=== PATIENT | male | born 1975 | race Two or more races ===

== ENCOUNTER 2017-03-07 19:04 | Inpatient (IN) | payer OTHER ==
[~2017-03-07] VITALS: Ht 182.9 cm; Wt 120.5 kg
[2017-03-07 23:00] VITALS: BP 186/117; RESP 20; Ht 182.9 cm; Wt 120.5 kg
[2017-03-07 23:30] VITALS: BP 144/78; PULSE 78; RESP 16
[2017-03-08] MEDS ORDERED: hydrALAzine 20 MG INJ IV PRN
[2017-03-08] MEDS ORDERED: ONDANSETRON 4 MG INJ IV PRN
[2017-03-08] MEDS: DEXTROSE 5%-0.9% NACL 1,000 ML IV SCH ×3 (00:41→23:41)
[2017-03-08 06:08] LABS: ADD SCAN DIFF NO
[2017-03-08] MEDS: PANTOPRAZOLE 40 MG INJ IV SCH (06:11)
[2017-03-08 06:13] LABS: ABNORMAL IP MESSAGE 1; BASOPHIL # 0.1 10^3/ul (0.0-0.1); BASOPHILS % 0.5 % (0.0-2.0); EOSINOPHILS # 0.1 10^3/ul (0.0-0.5); EOSINOPHILS % 0.7 % (0.0-7.0); HEMATOCRIT 47.6 % (42.0-52.0); HEMOGLOBIN 15.5 g/dl (14.0-18.0); LYMPHOCYTES # 2.6 10^3/ul (0.8-2.9); MEAN CORPUSCULAR HEMOGLOBIN 30.7 pg (29.0-33.0); MEAN CORPUSCULAR HGB CONC 32.6 g/dl (32.0-37.0); MEAN CORPUSCULAR VOLUME 94.3 fl (82.0-101.0); MEAN PLATELET VOLUME 10.2 fl (7.4-10.4); MONOCYTE # 1.5 10^3/ul (0.3-0.9); NEUTROPHIL # 10.8 10^3/ul (1.6-7.5); NEUTROPHILS % 70.9 % (39.0-77.0); PLATELET COUNT 300 10^3/UL (140-415); RED BLOOD COUNT 5.05 10^6/ul (4.70-6.10); RED CELL DISTRIBUTION WIDTH 12.7 % (11.5-14.5); WHITE BLOOD COUNT 15.2 10^3/ul (4.8-10.8)
[2017-03-08] MEDS: ACETAMINOPHEN 325 MG TAB PO PRN (06:14)
[2017-03-08 07:01] LABS: ALBUMIN 4.2 g/dl (3.3-4.9); ALBUMIN/GLOBULIN RATIO 1.23; BILIRUBIN,INDIRECT 1.2 mg/dl (0-1.1); BILIRUBIN,TOTAL 1.2 mg/dl (0.2-1.3); CALCIUM 9.1 mg/dl (8.4-10.2); CREATININE 0.74 mg/dl (0.61-1.24); POTASSIUM 3.9 mmol/L (3.5-5.1); TOTAL PROTEIN 7.6 g/dl (6.1-8.1)
[2017-03-08 08:01] VITALS: BP 140/99; RESP 18
[2017-03-08] MEDS: MULTIVITAMINS 10 ML, THIAMINE 100 MG, FOLIC ACID 1 MG in SOD CHLORIDE 0.9% 1,000 ML IVPB SCH (09:04)
[2017-03-08 14:38] LABS: ADD SCAN DIFF NO
[2017-03-08 14:43] LABS: BASOPHIL # 0.1 10^3/ul (0.0-0.1); BASOPHILS % 0.3 % (0.0-2.0); EOSINOPHILS # 0.1 10^3/ul (0.0-0.5); EOSINOPHILS % 0.7 % (0.0-7.0); HEMATOCRIT 48.7 % (42.0-52.0); HEMOGLOBIN 16.3 g/dl (14.0-18.0); LYMPHOCYTES # 2.9 10^3/ul (0.8-2.9); LYMPHOCYTES % 19.3 % (15.0-51.0); MEAN CORPUSCULAR HEMOGLOBIN 31.8 pg (29.0-33.0); MEAN CORPUSCULAR HGB CONC 33.5 g/dl (32.0-37.0); MEAN CORPUSCULAR VOLUME 95.1 fl (82.0-101.0); MEAN PLATELET VOLUME 9.7 fl (7.4-10.4); MONOCYTE # 1.5 10^3/ul (0.3-0.9); MONOCYTES % 9.8 % (0.0-11.0); NEUTROPHIL # 10.5 10^3/ul (1.6-7.5); NEUTROPHILS % 69.1 % (39.0-77.0); PLATELET COUNT 303 10^3/UL (140-415); RED BLOOD COUNT 5.12 10^6/ul (4.70-6.10); RED CELL DISTRIBUTION WIDTH 12.6 % (11.5-14.5); WHITE BLOOD COUNT 15.2 10^3/ul (4.8-10.8)
[2017-03-08 14:56] LABS: CALCIUM 9.6 mg/dl (8.4-10.2); CREATININE 0.77 mg/dl (0.61-1.24); POTASSIUM 4.6 mmol/L (3.5-5.1)
[2017-03-08] MEDS: LORAZEPAM 2 MG INJ IV PRN (16:54)
[2017-03-08] MEDS ORDERED: ALBUTEROL/IPRATROPIUM (NEB) 3 ML AMP HHN PRN (18:30)
--- NOTE | 2017-03-08 18:36 | HP ---
DATE OF ADMISSION: 03/07/2017 HISTORY OF PRESENT ILLNESS: The patient with no significant past medical history, transferred from [facility] with incomplete record. The patient presented to [facility] with compl aints of chest pain, noted to have shortness of breath. Patient denies any hemoptysis, weight loss. WBC 17.7, hematocrit 48.2. Patient's sodium 130, potassium 3.7, creatinine 1.07, glucose 120. The patient has history of alcohol use intermittently in the past. Patient's complete records from [facility] are not available. Patient had CT pulmonary angiogram done which shows fatty images in the liver and visualized stone noted in the gallbladder. A left upper lobe mass suspicious for neoplasm noted. The patient is being admitted. PAST MEDICAL HISTORY: Negative for diabetes, hypertension. ALLERGY HISTORY: NEGATIVE. FAMILY HISTORY: Noncontributory. SOCIAL HISTORY: Positive for social drinking. MEDICATIONS AT HOME: Listed as none. REVIEW OF SYSTEMS: HEENT: Unremarkable. RESPIRATORY: No shortness of breath at this point. ABDOMEN: Unremarkable. EXTREMITIES: Unremarkable. GENITOURINARY: Unremarkable. MUSCULOSKELETAL: Unremarkable. PHYSICAL EXAMINATION: GENERAL: The patient is awake, alert, anxious. VITAL SIGNS: Stable. HEAD: Atraumatic, normocephalic. Pupils equal, reactive to light. NECK: Supple. No JVD. LUNGS: Clear. CARDIOVASCULAR: S1, S2 are normal. ABDOMEN: Soft, nontender. Bowel sounds positive. No palpable mass or hepatosplenomegaly. No guar ding, rebound tenderness. EXTREMITIES: There is no cyanosis, clubbing, or edema. CENTRAL NERVOUS SYSTEM: The patient is awake and alert with no focal deficit. LABORATORY DATA: WBC 17.7, BUN 48.2, platelet count of 295. The patient's glucose 120, AST 44, ALT 87. Alkaline phosphatase 58, creatinine 1.07. IMPRESSION: 1. Patient has lung mass. 2. Possible pneumonia. 3. Rule out malignancy, abnormal liver function tests. PLAN: Give this patient oxygen, bronchodilator, antibiotic, pulmonary consultation, repeat CT scan and deep venous thrombosis prophylaxis. Orders were done. Dictated By: LINDA SCHULTZ MD BS/NTS Conf#: [id number] DID#: [id number]
[2017-03-08 19:31] VITALS: BP 194/101; RESP 20
--- NOTE | 2017-03-08 22:33 | RADRPT ---
PROCEDURE: CT Chest Without Contrast CLINICAL INDICATION: Mass, pneumonia TECHNIQUE: Volumetric acquisition of the thorax was performed without the intravenous administrati on of contrast. Radiation Dose: CTDI = 16.72 mGy; DLP = 676.53 mGy-cm. COMPARISON: Comparison to the portable chest done earlier on the same date. The portable chest film demonstrated a triangular nodular density projecting to the lateral left upp er lung zone with the apex directed towards the lateral pleura. FINDINGS: Lung leung: A 3.2 x 2.4 x 1.9 cm slightly spiculated mass is seen within the anterior segment of th e left upper lobe adjacent to the anterolateral pleura. The mass envelops a sub segmental bronchus. There is slight surrounding parenchymal reaction. No other focal lesion is identified within the lung parenchyma. The pleural spaces: There are small bilateral water density gravitating pleural fluid accumulations. No pneumothorax is evident. Lymph nodes: A 1.1 cm in short diameter AP window node is identified. No other adenopathy is eviden t. Cardiovascular structures: The heart is normal in size. The aorta appears normal in caliber. Thyroid: Unremarkable. Superior abdominal structures: The partially visualized liver is enlarged and diffusely fatty infilt rated with no focal lesion evident. No adrenal mass is evident. Osseous structures: Mild degenerative endplate changes are seen within the thoracic spine with no os seous destruction evident. IMPRESSION: 1. 3.2 x 2.4 x 1.9 cm slightly spiculated pleural-based mass is seen within the anterior segment of the left upper lobe adjacent to the anterior lateral pleura with slight surrounding parenchymal olivia ction. This could be inflammatory or neoplastic. 2. 1.1 cm in short diameter AP window node. 3. Small bilateral water density pleural fluid accumulations. No pneumothorax is evident. 4. Hepatomegaly with diffuse fatty infiltration. No focal lesion is seen within the partially visu alized liver. Findings of a 3.2 cm pleural-based left upper lobe mass were telephoned by Alessandro Menard MD to Emily tiwari, the patients RN on 03/08/[address] Mondragon was not in the hospital, and the mass was known because of prior imaging at a different facility. Jovan Menard Physician Date Time Electronically viewed and signed by Jovan Menard Physician on 03/08/2017 22:33 RH/
--- NOTE | 2017-03-08 22:33 | RADRPT ---
PROCEDURE: XR Chest AP portable CLINICAL INDICATION: Possible pneumonia TECHNIQUE: An AP portable radiograph of the chest was submitted. COMPARISON: None. FINDINGS: Support Hardware: None Cardiovascular: The cardiovascular silhouette appears unremarkable. Lung Leung: A triangular shaped nodular density projects to the lateral left upper lung zone with t he apex directed towards the lateral pleura. The lung leung are otherwise clear. Pleural Spaces: No pneumothorax or pleural effusion is identified. Osseous Structures: The osseous structures appear intact. Soft Tissues: The soft tissues appear generous. IMPRESSION: 1. 3.9 cm in maximal diameter nodular density projects to the lateral left upper lung zone. A mass cannot be excluded. Correlation with CT is indicated. 2. Otherwise, unremarkable portable chest. Physician Oxana Date Time Electronically viewed and signed by Jovan Menard Physician on 03/08/2017 22:33 /
[2017-03-08] MEDS: PIPER-TAZO 3.375 GM IV (PMX) 100 ML IVPB SCH (23:40)
[2017-03-09] MEDS: PIPER-TAZO 3.375 GM IV (PMX) 100 ML IVPB SCH ×4 (05:16→23:39)
[2017-03-09] MEDS: PANTOPRAZOLE 40 MG INJ IV SCH (05:16)
[2017-03-09 05:48] LABS: ADD SCAN DIFF NO
[2017-03-09 05:52] LABS: BASOPHIL # 0.1 10^3/ul (0.0-0.1); BASOPHILS % 0.5 % (0.0-2.0); EOSINOPHILS # 0.2 10^3/ul (0.0-0.5); EOSINOPHILS % 1.5 % (0.0-7.0); HEMATOCRIT 48.9 % (42.0-52.0); HEMOGLOBIN 15.9 g/dl (14.0-18.0); LYMPHOCYTES # 2.5 10^3/ul (0.8-2.9); LYMPHOCYTES % 17.8 % (15.0-51.0); MEAN CORPUSCULAR HEMOGLOBIN 31.2 pg (29.0-33.0); MEAN CORPUSCULAR HGB CONC 32.5 g/dl (32.0-37.0); MEAN CORPUSCULAR VOLUME 96.1 fl (82.0-101.0); MEAN PLATELET VOLUME 10.4 fl (7.4-10.4); MONOCYTE # 1.4 10^3/ul (0.3-0.9); MONOCYTES % 10.2 % (0.0-11.0); NEUTROPHIL # 9.5 10^3/ul (1.6-7.5); NEUTROPHILS % 69.2 % (39.0-77.0); PLATELET COUNT 273 10^3/UL (140-415); RED BLOOD COUNT 5.09 10^6/ul (4.70-6.10); RED CELL DISTRIBUTION WIDTH 12.7 % (11.5-14.5); WHITE BLOOD COUNT 13.8 10^3/ul (4.8-10.8)
[2017-03-09 05:56] VITALS: BP 129/85; RESP 18
[2017-03-09 06:22] LABS: ALBUMIN 4.2 g/dl (3.3-4.9); POTASSIUM 4.8 mmol/L (3.5-5.1)
[2017-03-09 06:24] LABS: CREATININE 0.96 mg/dl (0.61-1.24)
[2017-03-09 06:25] LABS: ALBUMIN/GLOBULIN RATIO 1.13; BILIRUBIN,INDIRECT 1.2 mg/dl (0-1.1); BILIRUBIN,TOTAL 1.2 mg/dl (0.2-1.3); CALCIUM 9.4 mg/dl (8.4-10.2); TOTAL PROTEIN 7.9 g/dl (6.1-8.1)
[2017-03-09] MEDS: ACETAMINOPHEN 325 MG TAB PO PRN (07:52)
[2017-03-09] MEDS: MULTIVITAMINS 10 ML, THIAMINE 100 MG, FOLIC ACID 1 MG in SOD CHLORIDE 0.9% 1,000 ML IVPB SCH (07:54)
[2017-03-09 07:59] VITALS: BP 168/99; RESP 22
[2017-03-09] MEDS: DEXTROSE 5%-0.9% NACL 1,000 ML IV SCH (16:00)
--- NOTE | 2017-03-09 18:19 | PN ---
Date/Time of Note Date/Time of Note DATE: 03/09/17 TIME: 18:18 Assessment/Plan VTE Prophylaxis VTE Prophylaxis Intervention: other Lines/Catheters IV [facility]from [facility] Peripheral IV Urinary Cath still in place: No Assessment/Plan Chief Complaint/Hosp Course IMPRESSION: 1. Patient has lung mass. 2. Possible pneumonia. 3. Rule out malignancy, abnormal liver function tests. plan antibiotic pulmonary pending Problems: Subjective 24 Hr Interval Summary Respiratory: shortness of breath (neg) Exam/Review of Systems Vital Signs Vitals Vital Signs Date Time Temp Pulse Resp B/P Pulse Ox O2 Delivery O2 Flow Rate FiO2 03/09/17 07:59 98.4 85 22 168/99 95 03/07/17 23:30 Room Air Intake and Output 03/08/17 03/08/17 03/09/17 15:00 23:00 07:00 Intake Total 300 ml 1591.2 ml 1313 ml Output Total 6 ml 620 ml Balance 300 ml 1585.2 ml 693 ml Exam Respiratory: clear to auscultation Cardiovascular: regular rate and rhythm Gastrointestinal: soft Results Result Diagram: 03/09/17 0504 03/09/17 0509 Results 24 hrs Laboratory Tests Test 03/09/17 05:04 03/09/17 05:09 White Blood Count 13.8 H Red Blood Count 5.09 Hemoglobin 15.9 Hematocrit 48.9 Mean Corpuscular Volume 96.1 Mean Corpuscular Hemoglobin 31.2 Mean Corpuscular Hemoglobin Concent 32.5 Red Cell Distribution Width 12.7 Platelet Count 273 Mean Platelet Volume 10.4 Neutrophils % 69.2 Lymphocytes % 17.8 Monocytes % 10.2 Eosinophils % 1.5 Basophils % 0.5 Nucleated Red Blood Cells % 0.0 Neutrophils # 9.5 H Lymphocytes # 2.5 Monocytes # 1.4 H Eosinophils # 0.2 Basophils # 0.1 Nucleated Red Blood Cells # 0.0 Sodium Level 142 Potassium Level 4.8 Chloride Level 101 Carbon Dioxide Level 27 Anion Gap 19 H Blood Urea Nitrogen 10 Creatinine 0.96 Glucose Level 130 Calcium Level 9.4 Total Bilirubin 1.2 Direct Bilirubin 0.00 Indirect Bilirubin 1.2 H Aspartate Amino Transf (AST/SGOT) 45 Alanine Aminotransferase (ALT/SGPT) 75 H Alkaline Phosphatase 52 Total Protein 7.9 Albumin 4.2 Globulin 3.70 H Albumin/Globulin Ratio 1.13 Medications Medications Current Medications Multivitamins 10 ml/Thiamine HCl 100 mg/Folic Acid 1 mg/Sodium Chloride 1,011.2 ml @ 125 mls/ hr DAILY@09 IVPB Last administered on 03/09/17 07:54; Admin Dose 125 MLS/HR; Start 03/08/17 at 09:00 Dextrose/Sodium Chloride (D5-NS) 1,000 ml @ 75 mls/hr [id number] IV Last administered on 03/08/17 23:41; Admin Dose 75 MLS/HR; Start 03/08/17 at 00:00 Pantoprazole (Protonix Iv) 40 mg DAILY@06 IV Last administered on 03/09/17 05: 16; Admin Dose 40 MG; Start 03/08/17 at 06:00 Acetaminophen (Tylenol Tab) 650 mg Q6H PRN PO PAIN AND OR ELEVATED TEMP Last administered on 03/09/17 07:52; Admin Dose 650 MG; Start 03/08/17 at 00:00 Ondansetron HCl (Zofran Inj) 4 mg Q6H PRN IV NAUSEA AND/OR VOMITING; Start 03/08 at 00:00 Hydralazine HCl (Apresoline) 10 mg Q6H PRN IV ELEVATED BLOOD PRESSURE Last administered on 03/08/17 00:37; Admin Dose 10 MG; Start 03/08/17 at 00:00 Lorazepam 1 mg 1 mg Q6H PRN IV ANXIETY Last administered on 03/08/17 16:54; Admin Dose 1 MG; Start 03/08/17 at 17:00 Piperacillin Sod/ Tazobactam Sod (Zosyn 3.375gm/ 100 ml (Pmx)) 100 ml @ 200 mls /hr Q6 IVPB Last administered on 03/09/17 18:05; Admin Dose 200 MLS/HR; Start 03/09/17 at 00:00 LINDA SCHULTZ MD March 09, 2017 18:19
[2017-03-09 19:55] VITALS: BP 148/86; RESP 20
[2017-03-09] MEDS: HYDROCODONE/APAP (5/325) TAB PO PRN (22:28)
[2017-03-10] MEDS: LORAZEPAM 2 MG INJ IV PRN ×2 (00:28→22:41)
[2017-03-10] MEDS: DEXTROSE 5%-0.9% NACL 1,000 ML IV SCH ×3 (04:06→18:40)
[2017-03-10 05:32] LABS: ADD SCAN DIFF NO
[2017-03-10 05:35] LABS: ABNORMAL IP MESSAGE 1; BASOPHIL # 0.1 10^3/ul (0.0-0.1); BASOPHILS % 0.4 % (0.0-2.0); EOSINOPHILS # 0.2 10^3/ul (0.0-0.5); EOSINOPHILS % 1.5 % (0.0-7.0); HEMATOCRIT 50.5 % (42.0-52.0); HEMOGLOBIN 16.5 g/dl (14.0-18.0); LYMPHOCYTES # 2.6 10^3/ul (0.8-2.9); LYMPHOCYTES % 16.8 % (15.0-51.0); MEAN CORPUSCULAR HEMOGLOBIN 31.2 pg (29.0-33.0); MEAN CORPUSCULAR HGB CONC 32.7 g/dl (32.0-37.0); MEAN CORPUSCULAR VOLUME 95.5 fl (82.0-101.0); MEAN PLATELET VOLUME 9.8 fl (7.4-10.4); MONOCYTE # 1.7 10^3/ul (0.3-0.9); MONOCYTES % 10.9 % (0.0-11.0); NEUTROPHIL # 10.8 10^3/ul (1.6-7.5); NEUTROPHILS % 69.4 % (39.0-77.0); PLATELET COUNT 300 10^3/UL (140-415); RED BLOOD COUNT 5.29 10^6/ul (4.70-6.10); RED CELL DISTRIBUTION WIDTH 12.5 % (11.5-14.5); WHITE BLOOD COUNT 15.6 10^3/ul (4.8-10.8)
[2017-03-10] MEDS: PANTOPRAZOLE 40 MG INJ IV SCH (05:47)
[2017-03-10] MEDS: PIPER-TAZO 3.375 GM IV (PMX) 100 ML IVPB SCH ×3 (05:47→19:24)
[2017-03-10 07:31] VITALS: BP 146/96; RESP 20
[2017-03-10] MEDS: HYDROCODONE/APAP (5/325) TAB PO PRN ×2 (09:39→19:35)
[2017-03-10] MEDS: MULTIVITAMINS 10 ML, THIAMINE 100 MG, FOLIC ACID 1 MG in SOD CHLORIDE 0.9% 1,000 ML IVPB SCH (09:41)
--- NOTE | 2017-03-10 13:08 | CONS ---
DATE OF ADMISSION: 03/07/2017 DATE OF CONSULTATION: PULMONARY CONSULTATION REASON FOR CONSULTATION: Abnormal chest CT. HISTORY OF PRESENT ILLNESS: This is a 41-year-old gentleman with history of tobacco use with sympto ms of community-acquired pneumonia, who presented to [facility]. There, was found to have a left-sided infiltrate or mass. CT of the chest performed here confirms left chest wall lesion, po ssible infiltrate versus malignancy. The patient has positive tobacco and alcohol history. Current ly on banana bag. PAST MEDICAL HISTORY: As above. MEDICATIONS: Per chart. ALLERGIES: NONE. SOCIAL HISTORY: Positive tobacco and alcohol. PHYSICAL EXAMINATION: GENERAL: Moderately obese gentleman, comfortable at rest, no acute distress. VITAL SIGNS: Currently afebrile, pulse is 100, blood pressure 140/60, O2 saturation 96% on 2 L nasa l cannula. NECK: Supple. No JVD or lymphadenopathy. CARDIAC: S1, S2, no added sounds or murmurs. CHEST: Diminished air entry bilaterally. ABDOMEN: Soft, nontender. No guarding or rebound. EXTREMITIES: No cyanosis, clubbing, edema. NEUROLOGIC: No focal deficits. LABORATORY DATA: White count 15, hemoglobin 16.5, platelets of 300. BUN 10, creatinine 0.96. IMPRESSION AND PLAN: Left-sided chest wall mass concerning for possible malignancy versus infection . The patient will need: 1. CT-guided biopsy. 2. Stat coags preprocedure. 3. Continue antibiotics, will deescalate current antibiotics. 4. DVT and GI prophylaxis. Dictated By: MERLYN ADAMS/PINKY Conf#: [id number] DID#: [id number]
[2017-03-10 15:13] LABS: INR 1.15; PROTIME 14.7 Sec (12.2-14.2); PT RATIO 1.1
[2017-03-10 15:14] LABS: THROMBIN TIME 15.9 SEC (13.8-19.1)
--- NOTE | 2017-03-10 15:48 | PN ---
Date/Time of Note Date/Time of Note DATE: 03/10/17 TIME: 15:47 Assessment/Plan VTE Prophylaxis VTE Prophylaxis Intervention: other Lines/Catheters IV C[facility]ter Type (from [facility]): Peripheral IV Urinary Cath still in place: No Assessment/Plan Chief Complaint/Hosp Course IMPRESSION: 1. Patient has lung mass. 2. Possible pneumonia. 3. Rule out malignancy, abnormal liver function tests. plan antibiotic LUNG BIOPSY Problems: Subjective 24 Hr Interval Summary Eyes: no complaints ENT: no complaints Respiratory: no complaints Exam/Review of Systems Vital Signs Vitals Vital Signs Date Time Temp Pulse Resp B/P Pulse Ox O2 Delivery O2 Flow Rate FiO2 03/10/17 07:31 99.7 112 20 146/96 96 03/07/17 23:30 Room Air Intake and Output 03/09/17 03/09/17 03/10/17 15:00 23:00 07:00 Intake Total 225 ml 2271.2 ml 1135 ml Balance 225 ml 2271.2 ml 1135 ml Exam Neck: supple Respiratory: clear to auscultation Cardiovascular: regular rate and rhythm Gastrointestinal: soft Musculoskeletal: nl extremities to inspection Extremities: normal pulses Results Result Diagram: 03/10/17 0500 03/09/17 0509 Results 24 hrs Laboratory Tests Test 03/10/17 05:00 03/10/17 14:38 White Blood Count 15.6 H Red Blood Count 5.29 Hemoglobin 16.5 Hematocrit 50.5 Mean Corpuscular Volume 95.5 Mean Corpuscular Hemoglobin 31.2 Mean Corpuscular Hemoglobin Concent 32.7 Red Cell Distribution Width 12.5 Platelet Count 300 Pending Mean Platelet Volume 9.8 Neutrophils % 69.4 Lymphocytes % 16.8 Monocytes % 10.9 Eosinophils % 1.5 Basophils % 0.4 Nucleated Red Blood Cells % 0.0 Neutrophils # 10.8 H Lymphocytes # 2.6 Monocytes # 1.7 H Eosinophils # 0.2 Basophils # 0.1 Nucleated Red Blood Cells # 0.0 Prothrombin Time 14.7 H Prothrombin Time Ratio 1.1 INR International Normalized Ratio 1.15 Activated Partial Thromboplast Time 30.0 Thrombin Time 15.9 Medications Medications Current Medications Multivitamins 10 ml/Thiamine HCl 100 mg/Folic Acid 1 mg/Sodium Chloride 1,011.2 ml @ 125 mls/ hr DAILY@09 IVPB Last administered on 03/10/17t 09:41; Admin Dose 125 MLS/HR; Start 03/08/17 at 09:00 Dextrose/Sodium Chloride (D5-NS) 1,000 ml @ 75 mls/hr [id number] IV Last administered on 03/10/17 04:06; Admin Dose 75 MLS/HR; Start 03/08/17 at 00:00 Pantoprazole (Protonix Iv) 40 mg DAILY@06 IV Last administered on 03/10/17 05: 47; Admin Dose 40 MG; Start 03/08/17 at 06:00 Acetaminophen (Tylenol Tab) 650 mg Q6H PRN PO PAIN AND OR ELEVATED TEMP Last administered on 03/09/17 07:52; Admin Dose 650 MG; Start 03/08/17 at 00:00 Ondansetron HCl (Zofran Inj) 4 mg Q6H PRN IV NAUSEA AND/OR VOMITING; Start 03/08 at 00:00 Hydralazine HCl (Apresoline) 10 mg Q6H PRN IV ELEVATED BLOOD PRESSURE Last administered on 03/08/17 00:37; Admin Dose 10 MG; Start 03/08/17 at 00:00 Lorazepam 1 mg 1 mg Q6H PRN IV ANXIETY Last administered on 03/10/17 00:28; Admin Dose 1 MG; Start 03/08/17 at 17:00 Piperacillin Sod/ Tazobactam Sod (Zosyn 3.375gm/ 100 ml (Pmx)) 100 ml @ 200 mls /hr Q6 IVPB Last administered on 03/10/17 12:54; Admin Dose 200 MLS/HR; Start 03/09/17 at 00:00 Acetaminophen/ Hydrocodone Bitart ([place] (5/325)) 1 tab Q6H PRN PO PAIN Last administered on 03/10/17 09:39; Admin Dose 1 TAB; Start 03/09/17 at 22:30 LINDA SCHULTZ MD March 10, 2017 15:48
[2017-03-10] MEDS: ACETAMINOPHEN 325 MG TAB PO PRN (16:14)
[2017-03-10 20:26] VITALS: BP 143/85; RESP 18
[2017-03-11] VITALS (8 sets, daily range): BP systolic 135–171; BP diastolic 84–97; PULSE 94–102; RESP 18–23
[2017-03-11] MEDS: PIPER-TAZO 3.375 GM IV (PMX) 100 ML IVPB SCH ×5 (00:33→23:57)
[2017-03-11] MEDS: DEXTROSE 5%-0.9% NACL 1,000 ML IV SCH ×2 (02:09→08:00)
[2017-03-11] MEDS: PANTOPRAZOLE 40 MG INJ IV SCH (05:37)
[2017-03-11] MEDS: HYDROCODONE/APAP (5/325) TAB PO PRN ×2 (07:46→16:45)
[2017-03-11] MEDS: MULTIVITAMINS 10 ML, THIAMINE 100 MG, FOLIC ACID 1 MG in SOD CHLORIDE 0.9% 1,000 ML IVPB SCH (08:45)
[2017-03-11] MEDS: MIDAZOLAM 1 MG/ML 2 ML INJ ONE ×2 (10:15→10:43)
[2017-03-11] MEDS: FENTAnyl 50 MCG/ML VIAL ONE ×2 (10:15→10:45)
[2017-03-11] MEDS: LIDOCAINE 1% (MDV) 20 ML INJ ONE ×2 (10:15→10:50)
[2017-03-11] MEDS ORDERED: SOD CHLORIDE 0.9% 500 ML ONE (10:15)
--- NOTE | 2017-03-11 14:34 | CONS ---
Date/Time of Note Date/Time of Note DATE: 03/11/17 TIME: 14:31 Consult Date/Type/Reason Admit Date/Time March 07, 2017 at 22:47 Initial Consult Date Type of Consultation: Pulmonary Subjective Patient comfortable this morning no new events He was taken down to CT for biopsy of left-sided infiltrate, Dr. Vázquez contact me and stated that the infiltrate has doubled in size which would be consistent with pneumonia and not malignant process. Biopsy was therefore not performed. Objective Vital Signs Date Time Temp Pulse Resp B/P Pulse Ox O2 Delivery O2 Flow Rate FiO2 03/11/17 09:19 98.8 102 18 135/91 96 Room Air Intake and Output 03/10/17 03/10/17 03/11/17 15:00 23:00 07:00 Intake Total 365 ml 2285 ml 1411.2 ml Balance 365 ml 2285 ml 1411.2 ml Exam PHYSICAL EXAMINATION: GENERAL: Moderately obese gentleman, comfortable at rest, no acute distress. VITAL SIGNS: As above NECK: Supple. No JVD or lymphadenopathy. CARDIAC: S1, S2, no added sounds or murmurs. CHEST: Diminished air entry bilaterally. ABDOMEN: Soft, nontender. No guarding or rebound. EXTREMITIES: No cyanosis, clubbing, edema. NEUROLOGIC: No focal deficits. Results/Medications Result Diagram: 03/10/17 1438 03/09/17 0509 Results 24 hrs Laboratory Tests Test 03/10/17 14:38 Platelet Count 296 Prothrombin Time 14.7 H Prothrombin Time Ratio 1.1 INR International Normalized Ratio 1.15 Activated Partial Thromboplast Time 30.0 Thrombin Time 15.9 Medications Current Medications Multivitamins 10 ml/Thiamine HCl 100 mg/Folic Acid 1 mg/Sodium Chloride 1,011.2 ml @ 125 mls/ hr DAILY@09 IVPB Last administered on 03/11/17 08:45; Admin Dose 125 MLS/HR; Start 03/08/17 at 09:00 Dextrose/Sodium Chloride (D5-NS) 1,000 ml @ 75 mls/hr [id number] IV Last administered on 03/11/17 02:09; Admin Dose 75 MLS/HR; Start 03/08/17 at 00:00 Pantoprazole (Protonix Iv) 40 mg DAILY@06 IV Last administered on 03/11/17 05: 37; Admin Dose 40 MG; Start 03/08/17 at 06:00 Acetaminophen (Tylenol Tab) 650 mg Q6H PRN PO PAIN AND OR ELEVATED TEMP Last administered on 03/10/17 16:14; Admin Dose 650 MG; Start 03/08/17 at 00:00 Ondansetron HCl (Zofran Inj) 4 mg Q6H PRN IV NAUSEA AND/OR VOMITING; Start 03/08 at 00:00 Hydralazine HCl (Apresoline) 10 mg Q6H PRN IV ELEVATED BLOOD PRESSURE Last administered on 03/08/17 00:37; Admin Dose 10 MG; Start 03/08/17 at 00:00 Lorazepam 1 mg 1 mg Q6H PRN IV ANXIETY Last administered on 03/10/17 22:41; Admin Dose 1 MG; Start 03/08/17 at 17:00 Piperacillin Sod/ Tazobactam Sod (Zosyn 3.375gm/ 100 ml (Pmx)) 100 ml @ 200 mls /hr Q6 IVPB Last administered on 03/11/17 13:06; Admin Dose 200 MLS/HR; Start 03/09/17 at 00:00 Acetaminophen/ Hydrocodone Bitart ([place] (5/325)) 1 tab Q6H PRN PO PAIN Last administered on 03/11/17 07:46; Admin Dose 1 TAB; Start 03/09/17 at 22:30 Assessment/Plan Chief Complaint/Hosp Course Assessment 1. Left-sided infiltrate initially concerning for malignancy but no increasing in size likely consistent with community acquired pneumonia. Plan Biopsy on hold Continue broad-spectrum antibiotics Repeat chest x-ray 1-2 days anticipate improvement. If no radiographic improvement with persistent leukocytosis patient will need either bronchoscopy or CT-guided biopsy to rule out differential diagnosis which does include cryptogenic organizing pneumonia Problems: MERLYN KRISHNA MD, [facility] March 11, 2017 14:33
--- NOTE | 2017-03-11 16:25 | RADRPT ---
PROCEDURE: CT Chest without contrast. CLINICAL INDICATION: Left lung mass. TECHNIQUE: Helical axial sections were obtained through the chest without intravenous contrast enh ancement. Coronal and sagittal reformatted images were obtained from the axial source images. Total exam DLP is unobtainable. CTDIvol is unobtainable. One or more of the following dose reduction t echniques were used: Automated exposure control, adjustment of the mA and/or kV according to patient size, use of iterative reconstruction technique. COMPARISON: CT scan of the chest dated 03/08/2017. FINDINGS: This is a limited study obtained for targeting of left upper lobe lesion for biopsy. Limited images obtained through the left upper lobe demonstrate patchy air space disease surrounding a mass-like lesion with the mass-like lesion measuring up to 6 cm in maximal dimension. On the ana or study and measured up to 3.2 cm in maximal dimension. There is no other new abnormality. IMPRESSION: 1. Limited CT scan of the chest. 2. The left upper lobe mass like lesion is now much larger than seen on the prior study 3 days ago indicating it is probably infectious in nature. Biopsy was not performed. Call report: A call report of the findings was made to Dr. Guzman on 03/11/2017 at 1145 hours. RPTAT: QQ .Jl Vázquez MD, MD Date Time Electronically viewed and signed by .Jl Vázquez MD, on 03/11/2017 16:25 .R/
[2017-03-11] MEDS: ACETAMINOPHEN 325 MG TAB PO PRN (19:59)
--- NOTE | 2017-03-11 20:22 | PN ---
Date/Time of Note Date/Time of Note DATE: 03/11/17 TIME: 20:20 Assessment/Plan VTE Prophylaxis VTE Prophylaxis Intervention: anti-embolic stocking Lines/Catheters [facility]from [facility] Peripheral IV Urinary Cath still in place: No Assessment/Plan Chief Complaint/Hosp Course 1. Patient has lung mass. 2. Possible pneumonia. 3. Rule out malignancy, abnormal liver function tests. Problems: Assessment/Plan 1. Cont A.b Subjective 24 Hr Interval Summary Constitutional: improved, no complaints Exam/Review of Systems Vital Signs Vitals Vital Signs Date Time Temp Pulse Resp B/P Pulse Ox O2 Delivery O2 Flow Rate FiO2 03/11/17 19:41 100.0 88 20 156/97 98 03/11/17 11:00 Room Air 03/11/17 10:55 2.0 Intake and Output 03/10/17 03/10/17 03/11/17 15:00 23:00 07:00 Intake Total 365 ml 2285 ml 1411.2 ml Balance 365 ml 2285 ml 1411.2 ml Exam Constitutional: alert, oriented Neck: supple Respiratory: clear to auscultation Cardiovascular: regular rate and rhythm Results Result Diagram: 03/10/17 1438 03/09/17 0509 Medications Medications Current Medications Pantoprazole (Protonix Iv) 40 mg DAILY@06 IV Last administered on 03/11/17 05: 37; Admin Dose 40 MG; Start 03/08/17 at 06:00 Acetaminophen (Tylenol Tab) 650 mg Q6H PRN PO PAIN AND OR ELEVATED TEMP Last administered on 03/11/17 19:59; Admin Dose 650 MG; Start 03/08/17 at 00:00 Ondansetron HCl (Zofran Inj) 4 mg Q6H PRN IV NAUSEA AND/OR VOMITING; Start 03/08 at 00:00 Hydralazine HCl (Apresoline) 10 mg Q6H PRN IV ELEVATED BLOOD PRESSURE Last administered on 03/08/17 00:37; Admin Dose 10 MG; Start 03/08/17 at 00:00 Lorazepam 1 mg 1 mg Q6H PRN IV ANXIETY Last administered on 03/10/17 22:41; Admin Dose 1 MG; Start 03/08/17 at 17:00 Piperacillin Sod/ Tazobactam Sod (Zosyn 3.375gm/ 100 ml (Pmx)) 100 ml @ 200 mls /hr Q6 IVPB Last administered on 03/11/17 19:14; Admin Dose 200 MLS/HR; Start 03/09/17 at 00:00 Acetaminophen/ Hydrocodone Bitart ([place] (5/325)) 1 tab Q6H PRN PO PAIN Last administered on 03/11/17 16:45; Admin Dose 1 TAB; Start 03/09/17 at 22:30 Multivitamins Therapeutic (Theragran) 1 tab DAILY PO ; Start 03/12/17 at 09:00 JAMILA LYNN March 11, 2017 20:21
[2017-03-11] MEDS: LORAZEPAM 2 MG INJ IV PRN (22:47)
[2017-03-12] VITALS: BP 136/81; PULSE 113; RESP 20
[2017-03-12] MEDS ORDERED: VANCOMYCIN IV PER PHARMACY XX SCH (00:30)
[2017-03-12] MEDS ORDERED: ACETAMINOPHEN 325 MG TAB PO ONE (00:49)
[2017-03-12] MEDS ORDERED: VANCOMYCIN 2 GM in SOD CHLORIDE 0.9% 500 ML IVPB ONE (02:00)
[2017-03-12 06:00] VITALS: PULSE 100
[2017-03-12] MEDS: PIPER-TAZO 3.375 GM IV (PMX) 100 ML IVPB SCH (06:22)
[2017-03-12] MEDS: PANTOPRAZOLE 40 MG INJ IV SCH (06:22)
[2017-03-12 06:42] LABS: ADD SCAN DIFF NO
[2017-03-12 06:51] LABS: ABNORMAL IP MESSAGE 1; BASOPHIL # 0.1 10^3/ul (0.0-0.1); BASOPHILS % 0.6 % (0.0-2.0); EOSINOPHILS # 0.4 10^3/ul (0.0-0.5); EOSINOPHILS % 2.4 % (0.0-7.0); HEMOGLOBIN 14.2 g/dl (14.0-18.0); LYMPHOCYTES # 2.2 10^3/ul (0.8-2.9); LYMPHOCYTES % 14.6 % (15.0-51.0); MEAN CORPUSCULAR HEMOGLOBIN 31.4 pg (29.0-33.0); MEAN CORPUSCULAR VOLUME 95.1 fl (82.0-101.0); MEAN PLATELET VOLUME 10.4 fl (7.4-10.4); MONOCYTE # 1.7 10^3/ul (0.3-0.9); MONOCYTES % 11.4 % (0.0-11.0); NEUTROPHIL # 10.6 10^3/ul (1.6-7.5); NEUTROPHILS % 70.3 % (39.0-77.0); PLATELET COUNT 259 10^3/UL (140-415); RED BLOOD COUNT 4.52 10^6/ul (4.70-6.10); RED CELL DISTRIBUTION WIDTH 12.3 % (11.5-14.5); WHITE BLOOD COUNT 15.1 10^3/ul (4.8-10.8)
[2017-03-12 07:50] VITALS: BP 147/91; RESP 18
[2017-03-12] MEDS: HYDROCODONE/APAP (5/325) TAB PO PRN ×2 (08:26→15:00)
[2017-03-12] MEDS: MULTIVITAMINS THERAPEUTIC TAB PO SCH (08:26)
[2017-03-12] MEDS: CEFTRIAXONE 1 GM/50 ML (PMX) 50 ML IVPB SCH (08:26)
[2017-03-12 09:11] LABS: CALCIUM 8.8 mg/dl (8.4-10.2); CREATININE 0.84 mg/dl (0.61-1.24); POTASSIUM 3.8 mmol/L (3.5-5.1)
[2017-03-12] MEDS: AZITHROMYCIN 500 MG in SOD CHLORIDE 0.9% 250 ML IVPB SCH (09:31)
--- NOTE | 2017-03-12 11:35 | RADRPT ---
PROCEDURE: XR Chest. CLINICAL INDICATION: CHF, pneumonia TECHNIQUE: Single frontal chest x-ray. COMPARISON: CT, 03/11/2017 FINDINGS: Focal opacity is again noted in the left upper lobe, grossly stable in size when compared to the ana or CT. No pneumothorax or significant pleural effusion is identified. Cardiomediastinal silhouette i s within normal limits. The osseous structures are unremarkable. IMPRESSION: 1. Focal left upper lobe opacity is again noted, grossly stable in size, concerning for pneumonia. RPTAT: QQ .Tres Feng MD, MD Date Time Electronically viewed and signed by .Tres Feng MD, on 03/12/2017 11:34 .R/
--- NOTE | 2017-03-12 13:35 | PN ---
Date/Time of Note Date/Time of Note DATE: 03/12/17 TIME: 13:32 Assessment/Plan VTE Prophylaxis VTE Prophylaxis Intervention: ambulation Lines/Catheters IV C[facility]ter Type (from [facility]): Saline Lock Urinary Cath still in place: No Assessment/Plan Chief Complaint/Hosp Course 1. Patient has lung mass. 2. Possible pneumonia. 3. Rule out malignancy, abnormal liver function tests 4. Hyponatremia. Problems: Assessment/Plan 1. Continue a/b 2. Add ID consult Dr Carbone Exam/Review of Systems Vital Signs Vitals Vital Signs Date Time Temp Pulse Resp B/P Pulse Ox O2 Delivery O2 Flow Rate FiO2 03/12/17 07:50 99.7 98 18 147/91 98 03/12/17 00:00 Room Air 03/11/17 10:55 2.0 Intake and Output 03/11/17 03/11/17 03/12/17 15:00 23:00 07:00 Intake Total 270 ml 1560 ml 940 ml Balance 270 ml 1560 ml 940 ml Results Result Diagram: 03/12/17 0550 03/12/17 0555 Results 24 hrs Laboratory Tests Test 03/12/17 05:50 03/12/17 05:55 White Blood Count 15.1 H Red Blood Count 4.52 L Hemoglobin 14.2 Hematocrit 43.0 Mean Corpuscular Volume 95.1 Mean Corpuscular Hemoglobin 31.4 Mean Corpuscular Hemoglobin Concent 33.0 Red Cell Distribution Width 12.3 Platelet Count 259 Mean Platelet Volume 10.4 Neutrophils % 70.3 Lymphocytes % 14.6 L Monocytes % 11.4 H Eosinophils % 2.4 Basophils % 0.6 Nucleated Red Blood Cells % 0.0 Neutrophils # 10.6 H Lymphocytes # 2.2 Monocytes # 1.7 H Eosinophils # 0.4 Basophils # 0.1 Nucleated Red Blood Cells # 0.0 Sodium Level 134 L Potassium Level 3.8 Chloride Level 104 Carbon Dioxide Level 21 Anion Gap 13 Blood Urea Nitrogen 9 Creatinine 0.84 Glucose Level 121 Calcium Level 8.8 Medications Medications Current Medications Pantoprazole (Protonix Iv) 40 mg DAILY@06 IV Last administered on 03/12/17 06: 22; Admin Dose 40 MG; Start 03/08/17 at 06:00 Acetaminophen (Tylenol Tab) 650 mg Q6H PRN PO PAIN AND OR ELEVATED TEMP Last administered on 03/11/17 19:59; Admin Dose 650 MG; Start 03/08/17 at 00:00 Ondansetron HCl (Zofran Inj) 4 mg Q6H PRN IV NAUSEA AND/OR VOMITING; Start 03/08 at 00:00 Hydralazine HCl (Apresoline) 10 mg Q6H PRN IV ELEVATED BLOOD PRESSURE Last administered on 03/08/17 00:37; Admin Dose 10 MG; Start 03/08/17 at 00:00 Lorazepam (Ativan) 1 mg Q6H PRN IV ANXIETY Last administered on 03/11/17 22:47 ; Admin Dose 1 MG; Start 03/08/17 at 17:00 Acetaminophen/ Hydrocodone Bitart ([place] (5/325)) 1 tab Q6H PRN PO PAIN Last administered on 03/12/17 08:26; Admin Dose 1 TAB; Start 03/09/17 at 22:30 Multivitamins Therapeutic 1 tab 1 tab DAILY PO Last administered on 03/12/17 08:26; Admin Dose 1 TAB; Start 03/12/17 at 09:00 Vancomycin HCl 1.5 gm/Sodium Chloride 250 ml @ 83.333 mls/ hr Q12H IVPB ; Start 03/12/17 at 14:00 Ceftriaxone Sodium 50 ml @ 100 mls/hr Q24H IVPB Last administered on 08:26; Admin Dose 100 MLS/HR; Start 03/12/17 at 08:00 Azithromycin/ Sodium Chloride (Zithromax/NS) 250 ml @ 250 mls/hr DAILY IVPB Last administered on 03/12/17 09:31; Admin Dose 250 MLS/HR; Start 03/12/17 at 09:00 Miscellaneous Information (*Rx Drug Level Order Reminder*) VANCOMYCIN TROUGH AT 1300 ONCE ONCE XX ; Start 03/13/17 at 13:00; Stop 03/13/17 at 13:01 JAMILA LYNN March 12, 2017 13:35
[2017-03-12] MEDS: VANCOMYCIN 1.5 GM in SOD CHLORIDE 0.9% 250 ML IVPB SCH (14:36)
--- NOTE | 2017-03-12 16:23 | CONS ---
Date/Time of Note Date/Time of Note DATE: 03/12/17 TIME: 16:20 Consult Date/Type/Reason Admit Date/Time March 07, 2017 at 22:47 Initial Consult Date Type of Consultation: Pulmonary Subjective Still febrile. Objective Vital Signs Date Time Temp Pulse Resp B/P Pulse Ox O2 Delivery O2 Flow Rate FiO2 03/12/17 07:50 99.7 98 18 147/91 98 03/12/17 00:00 Room Air 03/11/17 10:55 2.0 Intake and Output 03/11/17 03/11/17 03/12/17 15:00 23:00 07:00 Intake Total 270 ml 1560 ml 940 ml Balance 270 ml 1560 ml 940 ml Exam CARDIAC: S1, S2, no added sounds or murmurs. CHEST: Left sided posterior upper lung zone rales ABDOMEN: Soft, nontender. No guarding or rebound. EXTREMITIES: No cyanosis, clubbing, edema. Results/Medications Result Diagram: 03/12/17 0550 03/12/17 0555 Results 24 hrs Laboratory Tests Test 03/12/17 05:50 03/12/17 05:55 White Blood Count 15.1 H Red Blood Count 4.52 L Hemoglobin 14.2 Hematocrit 43.0 Mean Corpuscular Volume 95.1 Mean Corpuscular Hemoglobin 31.4 Mean Corpuscular Hemoglobin Concent 33.0 Red Cell Distribution Width 12.3 Platelet Count 259 Mean Platelet Volume 10.4 Neutrophils % 70.3 Lymphocytes % 14.6 L Monocytes % 11.4 H Eosinophils % 2.4 Basophils % 0.6 Nucleated Red Blood Cells % 0.0 Neutrophils # 10.6 H Lymphocytes # 2.2 Monocytes # 1.7 H Eosinophils # 0.4 Basophils # 0.1 Nucleated Red Blood Cells # 0.0 Sodium Level 134 L Potassium Level 3.8 Chloride Level 104 Carbon Dioxide Level 21 Anion Gap 13 Blood Urea Nitrogen 9 Creatinine 0.84 Glucose Level 121 Calcium Level 8.8 Medications Current Medications Pantoprazole (Protonix Iv) 40 mg DAILY@06 IV Last administered on 03/12/17 06: 22; Admin Dose 40 MG; Start 03/08/17 at 06:00 Acetaminophen (Tylenol Tab) 650 mg Q6H PRN PO PAIN AND OR ELEVATED TEMP Last administered on 03/11/17 19:59; Admin Dose 650 MG; Start 03/08/17 at 00:00 Ondansetron HCl (Zofran Inj) 4 mg Q6H PRN IV NAUSEA AND/OR VOMITING; Start 03/08 at 00:00 Hydralazine HCl (Apresoline) 10 mg Q6H PRN IV ELEVATED BLOOD PRESSURE Last administered on 03/08/17 00:37; Admin Dose 10 MG; Start 03/08/17 at 00:00 Lorazepam (Ativan) 1 mg Q6H PRN IV ANXIETY Last administered on 03/11/17 22:47 ; Admin Dose 1 MG; Start 03/08/17 at 17:00 Acetaminophen/ Hydrocodone Bitart ([place] (5/325)) 1 tab Q6H PRN PO PAIN Last administered on 03/12/17 15:00; Admin Dose 1 TAB; Start 03/09/17 at 22:30 Multivitamins Therapeutic 1 tab 1 tab DAILY PO Last administered on 03/12/17 08:26; Admin Dose 1 TAB; Start 03/12/17 at 09:00 Vancomycin HCl 1.5 gm/Sodium Chloride 250 ml @ 83.333 mls/ hr Q12H IVPB Last administered on 03/12/17 14:36; Admin Dose 83.333 MLS/HR; Start 03/12/17 at 14: 00 Ceftriaxone Sodium 50 ml @ 100 mls/hr Q24H IVPB Last administered on 08:26; Admin Dose 100 MLS/HR; Start 03/12/17 at 08:00 Azithromycin/ Sodium Chloride (Zithromax/NS) 250 ml @ 250 mls/hr DAILY IVPB Last administered on 03/12/17 09:31; Admin Dose 250 MLS/HR; Start 03/12/17 at 09:00 Miscellaneous Information (*Rx Drug Level Order Reminder*) VANCOMYCIN TROUGH AT 1300 ONCE ONCE XX ; Start 03/13/17 at 13:00; Stop 03/13/17 at 13:01 Assessment/Plan Additional Assessment/Plan IMP: 1. LEIGHANN progressive mass-like infiltrate: now c/w CAP. Would consider crypto, cocci, and less likely TB. Also DISTRIBUTION CENTER SUPERVISOR is a possibility RECS: 1. De-escalate abx 2. obtain serum CRAG, cocci serologies, HIV, and AFB sputa x3 3. If work-up negative, would consider CT-guided bx vs. TBBx for possible DISTRIBUTION CENTER SUPERVISOR DIANE TIMMONS MD March 12, 2017 16:23
--- NOTE | 2017-03-12 18:40 | CONS ---
DATE OF ADMISSION: 03/07/2017 DATE OF CONSULTATION: 03/12/2017 TYPE OF CONSULTATION: Infectious Disease. REASON FOR CONSULTATION: Antibiotic management. HISTORY OF PRESENT ILLNESS: Lucian Marie is a 41-year-old male with no significant past medi venkat history who presented to [facility] with chest pain and shortness of breath. The patie nt has a history of alcohol use intermittently. His white count was 17.7, hematocrit was 48.2. CT pulmonary angiogram done shows fatty study images of the liver, visualized stones in the gallbladder , left upper lobe mass suspicious for neoplasm was noted. His white count was 17.7 on admission. HOSPITAL COURSE: On the , his white count was 15.2, H and H 15.5 and 47.6, platelet count 300,00 0. BUN and creatinine was 9/0.84. Sputum showed normal respiratory jose. Chest x-ray: 3.9 cm in maximal diameter nodular density projects to the lateral left upper lung zone, mass cannot be exclud ed. Correlation with CT scan is indicated. A CT scan of the chest showed 3.2 x 2.4 x 1.9 cm sligh tly spiculated pleural based mass seen within the anterior segment of the left upper lobe. This cou ld be inflammatory or neoplastic, a 1.1 cm in short diameter AP window node and pleural fluid accumu lation. No pneumothorax is evident. Hepatomegaly with diffuse fatty infiltrates. Limited CT scan of the chest, left upper lobe mass-like lesion now much larger than seen on the prior study 3 days a go indicating it is probably infectious in nature, biopsy not performed. Chest x-ray focal left upp er lobe opacity concerning for pneumonia. The patient was seen by Dr. Guzman, pulmonary who recomm ended CT-guided biopsy, continue antibiotics. The patient is currently on vancomycin, azithromycin, ceftriaxone. He was on Zosyn, piperacillin, tazobactam. The patient was more comfortable on the 11 01, a biopsy was not performed because the infiltrate had doubled in size and therefore was more co nsistent with pneumonitis, left sided infiltrates initially concerning for malignancy, likely consis tent with community-acquired pneumonia. The patient with a lung mass. PAST MEDICAL HISTORY: Operations as outlined. FAMILY HISTORY: Noncontributory. SOCIAL HISTORY: Does not smoke or abuse drugs. He has some positive social drinking. ALLERGIES: NONE TO PENICILLIN, SULFA OR FOODS. MEDICATIONS: Per chart. REVIEW OF SYSTEMS: As per HPI. PHYSICAL EXAMINATION: GENERAL: The patient is a well-developed, well-nourished male who is alert, responsive, in no acute distress. VITAL SIGNS: Stable. He is afebrile. SKIN: Without generalized rash. HEENT: Within normal limits. NECK: Supple. LYMPH NODES: None palpable. CHEST: Decreased breath sounds at the bases. HEART: Without murmur or gallop. ABDOMEN: Soft, nontender, without organosplenomegaly or masses. EXTREMITIES: Without cyanosis, clubbing, or edema. RECTAL AND GENITAL: Deferred. NEUROLOGIC: No focal neurological abnormalities. IMPRESSION AND PLAN: We are dealing here with a patient, Lucian Marie, who probably has comm unity-acquired pneumonia. However, we cannot rule out a mass and a biopsy would have been helpful I think in this situation However, we will continue to observe his white count which was 15.2 on adm ission, is still elevated at 15.1. We may want to change his ceftriaxone to cefepime but we will wa it a day to see how he does on this regimen. I will dictate my findings to Dr. Mondragon and Dr. Yajaira crabtree. Dictated By: KIMBERLYN CHARLES MD, JD/PINKY Conf#: [id number] DID#: [id number]
[2017-03-12 19:53] VITALS: BP 136/82; RESP 20
[2017-03-12] MEDS: ACETAMINOPHEN 325 MG TAB PO PRN (20:12)
[2017-03-12] MEDS: LORAZEPAM 2 MG INJ IV PRN (22:40)
[2017-03-13] MEDS: VANCOMYCIN 1.5 GM in SOD CHLORIDE 0.9% 250 ML IVPB SCH ×2 (02:08→14:36)
[2017-03-13] MEDS: ACETAMINOPHEN 325 MG TAB PO PRN ×2 (04:25→17:31)
[2017-03-13 05:39] LABS: ADD SCAN DIFF NO
[2017-03-13] MEDS: PANTOPRAZOLE 40 MG INJ IV SCH (05:40)
[2017-03-13 05:42] LABS: ABNORMAL IP MESSAGE 1; BASOPHIL # 0.1 10^3/ul (0.0-0.1); BASOPHILS % 0.6 % (0.0-2.0); EOSINOPHILS # 0.4 10^3/ul (0.0-0.5); EOSINOPHILS % 2.7 % (0.0-7.0); HEMATOCRIT 43.7 % (42.0-52.0); HEMOGLOBIN 14.2 g/dl (14.0-18.0); LYMPHOCYTES # 2.3 10^3/ul (0.8-2.9); LYMPHOCYTES % 16.2 % (15.0-51.0); MEAN CORPUSCULAR HEMOGLOBIN 31.1 pg (29.0-33.0); MEAN CORPUSCULAR HGB CONC 32.5 g/dl (32.0-37.0); MEAN CORPUSCULAR VOLUME 95.8 fl (82.0-101.0); MEAN PLATELET VOLUME 10.4 fl (7.4-10.4); MONOCYTE # 1.6 10^3/ul (0.3-0.9); MONOCYTES % 11.4 % (0.0-11.0); NEUTROPHIL # 9.8 10^3/ul (1.6-7.5); NEUTROPHILS % 68.6 % (39.0-77.0); PLATELET COUNT 280 10^3/UL (140-415); RED BLOOD COUNT 4.56 10^6/ul (4.70-6.10); WHITE BLOOD COUNT 14.3 10^3/ul (4.8-10.8)
[2017-03-13 06:06] LABS: POTASSIUM 3.8 mmol/L (3.5-5.1)
[2017-03-13 06:09] LABS: CREATININE 0.8 mg/dl (0.61-1.24)
[2017-03-13 06:10] LABS: CALCIUM 8.9 mg/dl (8.4-10.2)
[2017-03-13 07:33] VITALS: BP 128/87; RESP 18
[2017-03-13] MEDS: MULTIVITAMINS THERAPEUTIC TAB PO SCH (08:20)
[2017-03-13] MEDS: CEFTRIAXONE 1 GM/50 ML (PMX) 50 ML IVPB SCH (08:20)
[2017-03-13] MEDS: AZITHROMYCIN 500 MG in SOD CHLORIDE 0.9% 250 ML IVPB SCH (09:17)
[2017-03-13] MEDS: HYDROCODONE/APAP (5/325) TAB PO PRN ×2 (09:34→20:07)
--- NOTE | 2017-03-13 14:46 | CONS ---
Date/Time of Note Date/Time of Note DATE: 03/13/17 TIME: 14:44 Consult Date/Type/Reason Admit Date/Time March 07, 2017 at 22:47 Type of Consultation: Pulmonary Subjective Still febrile overnight. Less cough Objective Vital Signs Date Time Temp Pulse Resp B/P Pulse Ox O2 Delivery O2 Flow Rate FiO2 03/13/17 07:33 98.6 94 18 128/87 97 03/12/17 00:00 Room Air 03/11/17 10:55 2.0 Intake and Output 03/12/17 03/12/17 03/13/17 15:00 23:00 07:00 Intake Total 1220 ml 1530 ml 1350 ml Balance 1220 ml 1530 ml 1350 ml Exam CARDIAC: S1, S2, no added sounds or murmurs. CHEST: Left sided posterior upper lung zone rales ABDOMEN: Soft, nontender. No guarding or rebound. EXTREMITIES: No cyanosis, clubbing, edema. Results/Medications Result Diagram: 03/13/17 0422 03/13/17 0422 Results 24 hrs Laboratory Tests Test 03/12/17 16:55 03/13/17 04:22 03/13/17 13:05 HIV (1&2) Antibody NEGATIVE White Blood Count 14.3 H Red Blood Count 4.56 L Hemoglobin 14.2 Hematocrit 43.7 Mean Corpuscular Volume 95.8 Mean Corpuscular Hemoglobin 31.1 Mean Corpuscular Hemoglobin Concent 32.5 Red Cell Distribution Width 12.0 Platelet Count 280 Mean Platelet Volume 10.4 Neutrophils % 68.6 Lymphocytes % 16.2 Monocytes % 11.4 H Eosinophils % 2.7 Basophils % 0.6 Nucleated Red Blood Cells % 0.0 Neutrophils # 9.8 H Lymphocytes # 2.3 Monocytes # 1.6 H Eosinophils # 0.4 Basophils # 0.1 Nucleated Red Blood Cells # 0.0 Sodium Level 137 Potassium Level 3.8 Chloride Level 101 Carbon Dioxide Level 24 Anion Gap 16 Blood Urea Nitrogen 10 Creatinine 0.80 Glucose Level 140 Calcium Level 8.9 Vancomycin Level Trough < 5.0 L Medications Current Medications Pantoprazole (Protonix Iv) 40 mg DAILY@06 IV Last administered on 03/13/17t 05: 40; Admin Dose 40 MG; Start 03/08/17 at 06:00 Acetaminophen (Tylenol Tab) 650 mg Q6H PRN PO PAIN AND OR ELEVATED TEMP Last administered on 03/13/17 04:25; Admin Dose 650 MG; Start 03/08/17 at 00:00 Ondansetron HCl (Zofran Inj) 4 mg Q6H PRN IV NAUSEA AND/OR VOMITING; Start 03/08 at 00:00 Hydralazine HCl (Apresoline) 10 mg Q6H PRN IV ELEVATED BLOOD PRESSURE Last administered on 03/08/17 00:37; Admin Dose 10 MG; Start 03/08/17 at 00:00 Lorazepam (Ativan) 1 mg Q6H PRN IV ANXIETY Last administered on 03/12/17 22:40 ; Admin Dose 1 MG; Start 03/08/17 at 17:00 Acetaminophen/ Hydrocodone Bitart ([place] (5/325)) 1 tab Q6H PRN PO PAIN Last administered on 03/13/17 09:34; Admin Dose 1 TAB; Start 03/09/17 at 22:30 Multivitamins Therapeutic 1 tab 1 tab DAILY PO Last administered on 03/13/17 08:20; Admin Dose 1 TAB; Start 03/12/17 at 09:00 Vancomycin HCl 1.5 gm/Sodium Chloride 250 ml @ 83.333 mls/ hr Q12H IVPB Last administered on 03/13/17 14:36; Admin Dose 83.333 MLS/HR; Start 03/12/17 at 14: 00; Stop 03/13/17 at 20:00 Ceftriaxone Sodium 50 ml @ 100 mls/hr Q24H IVPB Last administered on 08:20; Admin Dose 100 MLS/HR; Start 03/12/17 at 08:00 Azithromycin 500 mg/Sodium Chloride 250 ml @ 250 mls/hr DAILY IVPB Last administered on 03/13/17 09:17; Admin Dose 250 MLS/HR; Start 03/12/17 at 09:00 Vancomycin HCl/ Sodium Chloride (Vancocin/NS) 500 ml @ 125 mls/hr Q8H IVPB ; Start 03/13/17 at 22:00 Assessment/Plan Additional Assessment/Plan IMP: 1. LEIGHANN progressive mass-like infiltrate: now c/w CAP. Would consider crypto, cocci, and less likely TB. Also VETERINARY SURGERY TECHNICIAN is a possibility RECS: 1. De-escalate abx 2. Await serum CRAG, cocci serologies, and AFB sputa x3; obtain mycoplasma serology 3. If work-up negative, would consider CT-guided bx vs. TBBx for possible VETERINARY SURGERY TECHNICIAN DIANE TIMMONS MD March 13, 2017 14:45
--- NOTE | 2017-03-13 17:12 | PN ---
Date/Time of Note Date/Time of Note DATE: 03/13/17 TIME: 17:11 Assessment/Plan VTE Prophylaxis VTE Prophylaxis Intervention: other Lines/Catheters IV C[facility]ter Type (from [facility]): Saline Lock Urinary Cath still in place: No Assessment/Plan Chief Complaint/Hosp Course IMPRESSION: 1. Patient has lung mass. 2. Possible pneumonia. 3. Rule out malignancy, abnormal liver function tests. plan antibiotic per id and pulmonary Problems: Subjective 24 Hr Interval Summary Respiratory: cough Exam/Review of Systems Vital Signs Vitals Vital Signs Date Time Temp Pulse Resp B/P Pulse Ox O2 Delivery O2 Flow Rate FiO2 03/13/17 07:33 98.6 94 18 128/87 97 03/12/17 00:00 Room Air 03/11/17 10:55 2.0 Intake and Output 03/12/17 03/12/17 03/13/17 14:59 22:59 06:59 Intake Total 1320 ml 1530 ml 1350 ml Balance 1320 ml 1530 ml 1350 ml Exam Neck: supple Respiratory: clear to auscultation Cardiovascular: regular rate and rhythm Gastrointestinal: soft Results Result Diagram: 03/13/17 0422 03/13/17 0422 Results 24 hrs Laboratory Tests Test 03/13/17 04:22 03/13/17 13:05 White Blood Count 14.3 H Red Blood Count 4.56 L Hemoglobin 14.2 Hematocrit 43.7 Mean Corpuscular Volume 95.8 Mean Corpuscular Hemoglobin 31.1 Mean Corpuscular Hemoglobin Concent 32.5 Red Cell Distribution Width 12.0 Platelet Count 280 Mean Platelet Volume 10.4 Neutrophils % 68.6 Lymphocytes % 16.2 Monocytes % 11.4 H Eosinophils % 2.7 Basophils % 0.6 Nucleated Red Blood Cells % 0.0 Neutrophils # 9.8 H Lymphocytes # 2.3 Monocytes # 1.6 H Eosinophils # 0.4 Basophils # 0.1 Nucleated Red Blood Cells # 0.0 Sodium Level 137 Potassium Level 3.8 Chloride Level 101 Carbon Dioxide Level 24 Anion Gap 16 Blood Urea Nitrogen 10 Creatinine 0.80 Glucose Level 140 Calcium Level 8.9 Vancomycin Level Trough < 5.0 L Medications Medications Current Medications Pantoprazole (Protonix Iv) 40 mg DAILY@06 IV Last administered on 03/13/17t 05: 40; Admin Dose 40 MG; Start 03/08/17 at 06:00 Acetaminophen (Tylenol Tab) 650 mg Q6H PRN PO PAIN AND OR ELEVATED TEMP Last administered on 03/13/17 04:25; Admin Dose 650 MG; Start 03/08/17 at 00:00 Ondansetron HCl (Zofran Inj) 4 mg Q6H PRN IV NAUSEA AND/OR VOMITING; Start 03/08 at 00:00 Hydralazine HCl (Apresoline) 10 mg Q6H PRN IV ELEVATED BLOOD PRESSURE Last administered on 03/08/17 00:37; Admin Dose 10 MG; Start 03/08/17 at 00:00 Lorazepam (Ativan) 1 mg Q6H PRN IV ANXIETY Last administered on 03/12/17 22:40 ; Admin Dose 1 MG; Start 03/08/17 at 17:00 Acetaminophen/ Hydrocodone Bitart ([place] (5/325)) 1 tab Q6H PRN PO PAIN Last administered on 03/13/17 09:34; Admin Dose 1 TAB; Start 03/09/17 at 22:30 Multivitamins Therapeutic 1 tab 1 tab DAILY PO Last administered on 03/13/17 08:20; Admin Dose 1 TAB; Start 03/12/17 at 09:00 Ceftriaxone Sodium (Rocephin) 50 ml @ 100 mls/hr Q24H IVPB Last administered on 03/13/17 08:20; Admin Dose 100 MLS/HR; Start 03/12/17 at 08:00 Levofloxacin (Levaquin) 750 mg DAILY@06 PO ; Start 03/14/17 at 06:00 LINDA SCHULTZ MD March 13, 2017 17:12
--- NOTE | 2017-03-13 18:00 | PN ---
DATE: 03/13/2017 INFECTIOUS DISEASE PROGRESS NOTE SUBJECTIVE: Patient is alert, feels good. He is ambulating in the hallway. Denies nausea, vomiting, diarrhea. No shortness of breath. WBC 14.3, no shift , no bands. BUN 10, creatinine 0.80. MICROBIOLOGY: Cultures have been negative. ANTIMICROBIALS: The patient is on Zithromax, Rocephin, Vancomycin. PHYSICAL EXAMINATION: GENERAL: Obese, well-developed, middle-aged man who is alert, in no distress. HEENT: Head atraumatic, normocephalic. Sclerae anicteric. Buccal mucosa pink. NECK: Supple. CHEST: Rise symmetrical. Breath sounds clear, diminished to bases. HEART: S1, S2. ABDOMEN: Soft, bowel tones present. EXTREMITIES: Without cyanosis. ASSESSMENT: 1. Left upper lobe progressive mass-like infiltrate. 2. Obesity. PLAN: We are going to change antibiotics to Levaquin, continue Rocephin. Await for final serologies and final workup. Follow recommendations of consultants. Dictated By: STEF MELO PRINCIPAL ADMINISTRATIVE CLERK for KIMBERLYN MORA/PINKY Conf#: [id number] DID#: [id number] DIANA
[2017-03-13 20:03] VITALS: BP 135/58; PULSE 75; RESP 18
[2017-03-13] MEDS ORDERED: VANCOMYCIN 1.75 GM in NS 500 ML IVPB SCH (22:00)
[2017-03-13] MEDS: LORAZEPAM 2 MG INJ IV PRN (22:06)
[2017-03-14] MEDS: ACETAMINOPHEN 325 MG TAB PO PRN (02:31)
[2017-03-14] MEDS: LEVOFLOXACIN 750 MG TABLET PO SCH (05:39)
[2017-03-14] MEDS: PANTOPRAZOLE 40 MG INJ IV SCH (05:39)
[2017-03-14 06:02] LABS: ADD SCAN DIFF NO
[2017-03-14 06:05] LABS: BASOPHIL # 0.1 10^3/ul (0.0-0.1); BASOPHILS % 0.7 % (0.0-2.0); EOSINOPHILS # 0.3 10^3/ul (0.0-0.5); EOSINOPHILS % 2.7 % (0.0-7.0); HEMATOCRIT 39.3 % (42.0-52.0); LYMPHOCYTES # 1.8 10^3/ul (0.8-2.9); LYMPHOCYTES % 16.7 % (15.0-51.0); MEAN CORPUSCULAR HEMOGLOBIN 31.5 pg (29.0-33.0); MEAN CORPUSCULAR HGB CONC 33.1 g/dl (32.0-37.0); MEAN CORPUSCULAR VOLUME 95.2 fl (82.0-101.0); MEAN PLATELET VOLUME 10.3 fl (7.4-10.4); MONOCYTE # 1.2 10^3/ul (0.3-0.9); MONOCYTES % 10.8 % (0.0-11.0); NEUTROPHIL # 7.5 10^3/ul (1.6-7.5); NEUTROPHILS % 68.6 % (39.0-77.0); PLATELET COUNT 264 10^3/UL (140-415); RED BLOOD COUNT 4.13 10^6/ul (4.70-6.10); RED CELL DISTRIBUTION WIDTH 11.9 % (11.5-14.5)
[2017-03-14 07:29] VITALS: BP 126/76; RESP 18
[2017-03-14] MEDS: CEFTRIAXONE 1 GM/50 ML (PMX) 50 ML IVPB SCH (08:54)
[2017-03-14] MEDS: HYDROCODONE/APAP (5/325) TAB PO PRN ×2 (09:23→21:39)
[2017-03-14] MEDS: MULTIVITAMINS THERAPEUTIC TAB PO SCH (09:24)
--- NOTE | 2017-03-14 11:23 | CONS ---
Date/Time of Note Date/Time of Note DATE: 03/14/17 TIME: 11:20 Assessment/Plan Assessment/Plan Additional Assessment/Plan Assessment recommendations; 1. Patient admitted with left upper lobe pneumonia with radiological worsening. Discontinue Rocephin. Start the patient was Zosyn 3.375 g every 8 hours. Obtain follow-up chest x-ray in 48 hours. Currently there is little clinical suspicion of Mycobacterium tuberculosis or any other unusual pathogens like coccidiomycosis pneumonia or COPD. Consultation Date/Type/Reason Admit Date/Time March 07, 2017 at 22:47 Initial Consult Date Type of Consultation: Pulmonary 24 HR Interval Summary Free Text/Dictation Patient condition is stable. He is ambulatory. Complains of mild chest congestion. Denies any fever chills or chest pain. General exam; young male, awake alert currently in no distress. Exam/Review of Systems Vital Signs Vitals Vital Signs Date Time Temp Pulse Resp B/P Pulse Ox O2 Delivery O2 Flow Rate FiO2 03/14/17 07:29 100.5 99 18 126/76 98 03/13/17 20:03 Room Air 03/11/17 10:55 2.0 Intake and Output 03/13/17 03/13/17 03/14/17 15:00 23:00 07:00 Intake Total 300 ml 1890 ml 1600 ml Balance 300 ml 1890 ml 1600 ml Exam HEENT examination; supple neck, no JVD. No lymphadenopathy. Midline trachea. No thyromegaly. Pharynx is clear. Patient has fair dentition. Chest examination; clear to auscultation. S1-S2 audible, normal murmurs. Regular rhythm. Abdomen examination; soft, nondistended. No organomegaly. Bowel sounds audible. Extremity exam is; no peripheral edema. MOBILE MANAGER examination; no focal deficit. Results Result Diagram: 03/14/17 0540 03/13/17 0422 Results 24 hrs Laboratory Tests Test 03/13/17 13:05 03/14/17 05:40 Vancomycin Level Trough < 5.0 L White Blood Count 11.0 #H Red Blood Count 4.13 L Hemoglobin 13.0 L Hematocrit 39.3 L Mean Corpuscular Volume 95.2 Mean Corpuscular Hemoglobin 31.5 Mean Corpuscular Hemoglobin Concent 33.1 Red Cell Distribution Width 11.9 Platelet Count 264 Mean Platelet Volume 10.3 Neutrophils % 68.6 Lymphocytes % 16.7 Monocytes % 10.8 Eosinophils % 2.7 Basophils % 0.7 Nucleated Red Blood Cells % 0.0 Neutrophils # 7.5 Lymphocytes # 1.8 Monocytes # 1.2 H Eosinophils # 0.3 Basophils # 0.1 Nucleated Red Blood Cells # 0.0 Medications Medications Current Medications Pantoprazole (Protonix Iv) 40 mg DAILY@06 IV Last administered on 03/14/17 05: 39; Admin Dose 40 MG; Start 03/08/17 at 06:00 Acetaminophen (Tylenol Tab) 650 mg Q6H PRN PO PAIN AND OR ELEVATED TEMP Last administered on 03/14/17 02:31; Admin Dose 650 MG; Start 03/08/17 at 00:00 Ondansetron HCl (Zofran Inj) 4 mg Q6H PRN IV NAUSEA AND/OR VOMITING; Start 03/08 at 00:00 Hydralazine HCl (Apresoline) 10 mg Q6H PRN IV ELEVATED BLOOD PRESSURE Last administered on 03/08/17 00:37; Admin Dose 10 MG; Start 03/08/17 at 00:00 Lorazepam (Ativan) 1 mg Q6H PRN IV ANXIETY Last administered on 03/13/17 22:06 ; Admin Dose 1 MG; Start 03/08/17 at 17:00 Acetaminophen/ Hydrocodone Bitart ([place] (5/325)) 1 tab Q6H PRN PO PAIN Last administered on 03/14/17 09:23; Admin Dose 1 TAB; Start 03/09/17 at 22:30 Multivitamins Therapeutic 1 tab 1 tab DAILY PO Last administered on 03/14/17 09:24; Admin Dose 1 TAB; Start 03/12/17 at 09:00 Ceftriaxone Sodium (Rocephin) 50 ml @ 100 mls/hr Q24H IVPB Last administered on 03/14/17 08:54; Admin Dose 100 MLS/HR; Start 03/12/17 at 08:00 Levofloxacin (Levaquin) 750 mg DAILY@06 PO Last administered on 03/14/17 05:39 ; Admin Dose 750 MG; Start 03/14/17 at 06:00 KIMBERLY PERALTA March 14, 2017 11:23
--- NOTE | 2017-03-14 11:35 | RADRPT ---
PROCEDURE: Chest 1 views. CLINICAL INDICATION: Shortness of breath TECHNIQUE: AP views of the chest was obtained. COMPARISON: March 12, 2017 FINDINGS: The heart is large. Left upper lobe lung mass/consolidation continues to be identified. Surrounding patchy infiltrates have mildly increased. Osseous structures are intact. IMPRESSION: Cardiomegaly . The left upper lung mass/consolidation. Mild interval increase in surrounding patchy infiltrates. RPTAT: AA .Dionisio Ching MD, MD Date Time Electronically viewed and signed by .Dionisio Ching MD, MD on 03/14/2017 11:35 .P/
--- NOTE | 2017-03-14 13:07 | CONS ---
Date/Time of Note Date/Time of Note DATE: 03/14/17 TIME: 13:06 Assessment/Plan Assessment/Plan Chief Complaint/Hosp Course SUBJECTIVE: Patient is alert, feels good. No shortness of breath. No fevers MICROBIOLOGY: Cultures have been negative. ANTIMICROBIALS: Zosyn Levaquin PHYSICAL EXAMINATION: GENERAL: Obese, well-developed, middle-aged man who is alert, in no distress. HEENT: Head atraumatic, normocephalic. Sclerae anicteric. Buccal mucosa pink. NECK: Supple. CHEST: Rise symmetrical. Breath sounds clear, diminished to bases. HEART: S1, S2. ABDOMEN: Soft, bowel tones present. EXTREMITIES: Without cyanosis. ASSESSMENT: 1. Left upper lobe progressive mass/PNA. 2. Obesity. PLAN: Clinically stable, pulmonary rec-s noted, pt was started on Zosyn, will monitor response DW pt/staff Problems: Consultation Date/Type/Reason Admit Date/Time March 07, 2017 at 22:47 Initial Consult Date Type of Consultation: ID Exam/Review of Systems Vital Signs Vitals Vital Signs Date Time Temp Pulse Resp B/P Pulse Ox O2 Delivery O2 Flow Rate FiO2 03/14/17 07:29 100.5 99 18 126/76 98 03/13/17 20:03 Room Air 03/11/17 10:55 2.0 Intake and Output 03/13/17 03/13/17 03/14/17 15:00 23:00 07:00 Intake Total 300 ml 1890 ml 1600 ml Balance 300 ml 1890 ml 1600 ml Results Result Diagram: 03/14/17 0540 03/13/17 0422 Results 24 hrs Laboratory Tests Test 03/14/17 05:40 White Blood Count 11.0 #H Red Blood Count 4.13 L Hemoglobin 13.0 L Hematocrit 39.3 L Mean Corpuscular Volume 95.2 Mean Corpuscular Hemoglobin 31.5 Mean Corpuscular Hemoglobin Concent 33.1 Red Cell Distribution Width 11.9 Platelet Count 264 Mean Platelet Volume 10.3 Neutrophils % 68.6 Lymphocytes % 16.7 Monocytes % 10.8 Eosinophils % 2.7 Basophils % 0.7 Nucleated Red Blood Cells % 0.0 Neutrophils # 7.5 Lymphocytes # 1.8 Monocytes # 1.2 H Eosinophils # 0.3 Basophils # 0.1 Nucleated Red Blood Cells # 0.0 Medications Medications Current Medications Pantoprazole (Protonix Iv) 40 mg DAILY@06 IV Last administered on 03/14/17 05: 39; Admin Dose 40 MG; Start 03/08/17 at 06:00 Acetaminophen (Tylenol Tab) 650 mg Q6H PRN PO PAIN AND OR ELEVATED TEMP Last administered on 03/14/17 02:31; Admin Dose 650 MG; Start 03/08/17 at 00:00 Ondansetron HCl (Zofran Inj) 4 mg Q6H PRN IV NAUSEA AND/OR VOMITING; Start 03/08 at 00:00 Hydralazine HCl (Apresoline) 10 mg Q6H PRN IV ELEVATED BLOOD PRESSURE Last administered on 03/08/17 00:37; Admin Dose 10 MG; Start 03/08/17 at 00:00 Lorazepam (Ativan) 1 mg Q6H PRN IV ANXIETY Last administered on 03/13/17 22:06 ; Admin Dose 1 MG; Start 03/08/17 at 17:00 Acetaminophen/ Hydrocodone Bitart ([place] (5/325)) 1 tab Q6H PRN PO PAIN Last administered on 03/14/17 09:23; Admin Dose 1 TAB; Start 03/09/17 at 22:30 Multivitamins Therapeutic (Theragran) 1 tab DAILY PO Last administered on 09:24; Admin Dose 1 TAB; Start 03/12/17 at 09:00 Levofloxacin 750 mg 750 mg DAILY@06 PO Last administered on 03/14/17 05:39; Admin Dose 750 MG; Start 03/14/17 at 06:00 Piperacillin Sod/ Tazobactam Sod (Zosyn 3.375gm/ 100 ml (Pmx)) 100 ml @ 200 mls /hr Q8 IVPB ; Start 03/14/17 at 14:00 STEF MELO NP March 14, 2017 13:07
[2017-03-14] MEDS: PIPER-TAZO 3.375 GM IV (PMX) 100 ML IVPB SCH ×2 (14:12→21:39)
--- NOTE | 2017-03-14 17:27 | PN ---
Date/Time of Note Date/Time of Note DATE: 03/14/17 TIME: 17:26 Assessment/Plan VTE Prophylaxis VTE Prophylaxis Intervention: other Lines/Catheters IV Catheter Type (from [facility]): Saline Lock Urinary Cath still in place: No Assessment/Plan Chief Complaint/Hosp Course IMPRESSION: 1. Patient has lung mass. 2. Possible pneumonia. 3. leucocytosis better plan antibiotic per id and pulmonary Problems: Subjective 24 Hr Interval Summary Respiratory: no complaints Cardiovascular: no complaints Gastrointestinal: no complaints Exam/Review of Systems Vital Signs Vitals Vital Signs Date Time Temp Pulse Resp B/P Pulse Ox O2 Delivery O2 Flow Rate FiO2 03/14/17 14:17 98.6 03/14/17 07:29 99 18 126/76 98 03/13/17 20:03 Room Air 03/11/17 10:55 2.0 Intake and Output 03/13/17 03/13/17 03/14/17 15:00 23:00 07:00 Intake Total 300 ml 1890 ml 1600 ml Balance 300 ml 1890 ml 1600 ml Exam Neck: supple Respiratory: clear to auscultation Cardiovascular: regular rate and rhythm Gastrointestinal: soft Musculoskeletal: nl extremities to inspection Extremities: normal pulses Results Result Diagram: 03/14/17 0540 03/13/17 0422 Results 24 hrs Laboratory Tests Test 03/14/17 05:40 White Blood Count 11.0 #H Red Blood Count 4.13 L Hemoglobin 13.0 L Hematocrit 39.3 L Mean Corpuscular Volume 95.2 Mean Corpuscular Hemoglobin 31.5 Mean Corpuscular Hemoglobin Concent 33.1 Red Cell Distribution Width 11.9 Platelet Count 264 Mean Platelet Volume 10.3 Neutrophils % 68.6 Lymphocytes % 16.7 Monocytes % 10.8 Eosinophils % 2.7 Basophils % 0.7 Nucleated Red Blood Cells % 0.0 Neutrophils # 7.5 Lymphocytes # 1.8 Monocytes # 1.2 H Eosinophils # 0.3 Basophils # 0.1 Nucleated Red Blood Cells # 0.0 Medications Medications Current Medications Acetaminophen (Tylenol Tab) 650 mg Q6H PRN PO PAIN AND OR ELEVATED TEMP Last administered on 03/14/17t 02:31; Admin Dose 650 MG; Start 03/08/17 at 00:00 Ondansetron HCl (Zofran Inj) 4 mg Q6H PRN IV NAUSEA AND/OR VOMITING; Start 03/08 at 00:00 Hydralazine HCl (Apresoline) 10 mg Q6H PRN IV ELEVATED BLOOD PRESSURE Last administered on 03/08/17 00:37; Admin Dose 10 MG; Start 03/08/17 at 00:00 Lorazepam (Ativan) 1 mg Q6H PRN IV ANXIETY Last administered on 03/13/17 22:06 ; Admin Dose 1 MG; Start 03/08/17 at 17:00 Acetaminophen/ Hydrocodone Bitart ([place] (5/325)) 1 tab Q6H PRN PO PAIN Last administered on 03/14/17 09:23; Admin Dose 1 TAB; Start 03/09/17 at 22:30 Multivitamins Therapeutic (Theragran) 1 tab DAILY PO Last administered on 09:24; Admin Dose 1 TAB; Start 03/12/17 at 09:00 Levofloxacin 750 mg 750 mg DAILY@06 PO Last administered on 03/14/17 05:39; Admin Dose 750 MG; Start 03/14/17 at 06:00 Piperacillin Sod/ Tazobactam Sod (Zosyn 3.375gm/ 100 ml (Pmx)) 100 ml @ 200 mls /hr Q8 IVPB Last administered on 03/14/17 14:12; Admin Dose 200 MLS/HR; Start 03/14/17 at 14:00 Pantoprazole (Protonix Tab) 40 mg DAILY@06 PO ; Start 03/15/17 at 06:00 LINDA SCHLUTZ MD March 14, 2017 17:27
[2017-03-14 19:42] VITALS: BP 159/78; RESP 18
[2017-03-14] MEDS: LORAZEPAM 2 MG INJ IV PRN (22:35)
[2017-03-15] MEDS: PIPER-TAZO 3.375 GM IV (PMX) 100 ML IVPB SCH ×3 (06:20→22:17)
[2017-03-15] MEDS: PANTOPRAZOLE (EC) 40 MG TAB PO SCH (06:20)
[2017-03-15] MEDS: LEVOFLOXACIN 750 MG TABLET PO SCH (06:20)
[2017-03-15 07:49] VITALS: BP 117/78; RESP 20
[2017-03-15 08:16] LABS: ADD SCAN DIFF NO
[2017-03-15 08:48] LABS: BASOPHIL # 0.1 10^3/ul (0.0-0.1); BASOPHILS % 0.7 % (0.0-2.0); EOSINOPHILS # 0.2 10^3/ul (0.0-0.5); EOSINOPHILS % 1.8 % (0.0-7.0); HEMATOCRIT 42.4 % (42.0-52.0); LYMPHOCYTES # 2.6 10^3/ul (0.8-2.9); LYMPHOCYTES % 21.4 % (15.0-51.0); MEAN CORPUSCULAR HEMOGLOBIN 31.4 pg (29.0-33.0); MEAN CORPUSCULAR VOLUME 95.1 fl (82.0-101.0); MONOCYTE # 1.3 10^3/ul (0.3-0.9); MONOCYTES % 10.6 % (0.0-11.0); NEUTROPHIL # 7.8 10^3/ul (1.6-7.5); NEUTROPHILS % 64.8 % (39.0-77.0); PLATELET COUNT 323 10^3/UL (140-415); RED BLOOD COUNT 4.46 10^6/ul (4.70-6.10)
[2017-03-15] MEDS: MULTIVITAMINS THERAPEUTIC TAB PO SCH (08:51)
--- NOTE | 2017-03-15 11:51 | CONS ---
Date/Time of Note Date/Time of Note DATE: 03/15/17 TIME: 11:49 Assessment/Plan Assessment/Plan Additional Assessment/Plan Assessment recommendations; 1. Patient admitted with upper lobe pneumonia with interval worsening, switch over from Rocephin to Zosyn yesterday. With continuation of Zithromax. 2. Clinically there is very little suspicion of any unusual pathogens like like a bacterial tuberculosis, coccidiomycosis etc. Next Continue current treatment. Obtain chest x-ray in [address] a PPD. Consultation Date/Type/Reason Admit Date/Time March 07, 2017 at 22:47 Type of Consultation: Pulmonary 24 HR Interval Summary Free Text/Dictation Patient condition stable. Denies any fever, chest pain, wheezing, sputum production. Denies any hemoptysis. General exam; young male, awake alert currently in no distress. Exam/Review of Systems Vital Signs Vitals Vital Signs Date Time Temp Pulse Resp B/P Pulse Ox O2 Delivery O2 Flow Rate FiO2 03/15/17 07:49 98.8 112 20 117/78 96 03/13/17 20:03 Room Air 03/11/17 10:55 2.0 Intake and Output 03/14/17 03/14/17 03/15/17 15:00 23:00 07:00 Intake Total 150 ml 2180 ml 560 ml Balance 150 ml 2180 ml 560 ml Exam HEENT exam is; supple neck, no JVD. No lymphadenopathy. Midline trachea. No thyromegaly. Pharynx is clear. Patient has fair dentition. Chest examination; clear to auscultation. S1-S2 audible, no murmurs. Regular rhythm. Abdomen examination; soft, nontender, protuberant. No organomegaly. Bowel sounds audible. Extremity examination; no peripheral edema. No clubbing. SEWER SYSTEM SUPERVISOR examination; no focal deficit. Results Result Diagram: 03/15/17 0715 03/13/17 0422 Results 24 hrs Laboratory Tests Test 03/15/17 07:15 White Blood Count 12.0 H Red Blood Count 4.46 L Hemoglobin 14.0 Hematocrit 42.4 Mean Corpuscular Volume 95.1 Mean Corpuscular Hemoglobin 31.4 Mean Corpuscular Hemoglobin Concent 33.0 Red Cell Distribution Width 12.0 Platelet Count 323 # Mean Platelet Volume 11.0 H Neutrophils % 64.8 Lymphocytes % 21.4 Monocytes % 10.6 Eosinophils % 1.8 Basophils % 0.7 Nucleated Red Blood Cells % 0.0 Neutrophils # 7.8 H Lymphocytes # 2.6 Monocytes # 1.3 H Eosinophils # 0.2 Basophils # 0.1 Nucleated Red Blood Cells # 0.0 Medications Medications Current Medications Acetaminophen (Tylenol Tab) 650 mg Q6H PRN PO PAIN AND OR ELEVATED TEMP Last administered on 03/14/17 02:31; Admin Dose 650 MG; Start 03/08/17 at 00:00 Ondansetron HCl (Zofran Inj) 4 mg Q6H PRN IV NAUSEA AND/OR VOMITING; Start 03/08 at 00:00 Hydralazine HCl (Apresoline) 10 mg Q6H PRN IV ELEVATED BLOOD PRESSURE Last administered on 03/08/17 00:37; Admin Dose 10 MG; Start 03/08/17 at 00:00 Lorazepam (Ativan) 1 mg Q6H PRN IV ANXIETY Last administered on 03/14/17 22:35 ; Admin Dose 1 MG; Start 03/08/17 at 17:00 Acetaminophen/ Hydrocodone Bitart ([place] (5/325)) 1 tab Q6H PRN PO PAIN Last administered on 03/14/17 21:39; Admin Dose 1 TAB; Start 03/09/17 at 22:30 Multivitamins Therapeutic (Theragran) 1 tab DAILY PO Last administered on 08:51; Admin Dose 1 TAB; Start 03/12/17 at 09:00 Levofloxacin 750 mg 750 mg DAILY@06 PO Last administered on 03/15/17 06:20; Admin Dose 750 MG; Start 03/14/17 at 06:00 Piperacillin Sod/ Tazobactam Sod (Zosyn 3.375gm/ 100 ml (Pmx)) 100 ml @ 200 mls /hr Q8 IVPB Last administered on 03/15/17 06:20; Admin Dose 200 MLS/HR; Start 03/14/17 at 14:00 Pantoprazole (Protonix Tab) 40 mg DAILY@06 PO Last administered on 03/15/17 06 :20; Admin Dose 40 MG; Start 03/15/17 at 06:00 KIMBERLY PERALTA March 15, 2017 11:51
--- NOTE | 2017-03-15 12:37 | CONS ---
Date/Time of Note Date/Time of Note DATE: 03/15/17 TIME: 12:36 Assessment/Plan Assessment/Plan Chief Complaint/Hosp Course SUBJECTIVE: Patient is alert, feels good. No shortness of breath. No fevers MICROBIOLOGY: Cultures have been negative. AFB smear negative ANTIMICROBIALS: Zosyn Levaquin PHYSICAL EXAMINATION: GENERAL: Obese, well-developed, middle-aged man who is alert, in no distress. HEENT: Head atraumatic, normocephalic. Sclerae anicteric. Buccal mucosa pink. NECK: Supple. CHEST: Rise symmetrical. Breath sounds clear, diminished to bases. HEART: S1, S2. ABDOMEN: Soft, bowel tones present. EXTREMITIES: Without cyanosis. ASSESSMENT: 1. Left upper lobe PNA. 2. Obesity. PLAN: Clinically stable, pulmonary rec-s noted==> low suspicion for unusual pathogens, continue abx DW pt/staff Problems: Consultation Date/Type/Reason Admit Date/Time March 07, 2017 at 22:47 Type of Consultation: ID Exam/Review of Systems Vital Signs Vitals Vital Signs Date Time Temp Pulse Resp B/P Pulse Ox O2 Delivery O2 Flow Rate FiO2 03/15/17 07:49 98.8 112 20 117/78 96 03/13/17 20:03 Room Air 03/11/17 10:55 2.0 Intake and Output 03/14/17 03/14/17 03/15/17 15:00 23:00 07:00 Intake Total 150 ml 2180 ml 560 ml Balance 150 ml 2180 ml 560 ml Results Result Diagram: 03/15/17 0715 03/13/17 0422 Results 24 hrs Laboratory Tests Test 03/15/17 07:15 White Blood Count 12.0 H Red Blood Count 4.46 L Hemoglobin 14.0 Hematocrit 42.4 Mean Corpuscular Volume 95.1 Mean Corpuscular Hemoglobin 31.4 Mean Corpuscular Hemoglobin Concent 33.0 Red Cell Distribution Width 12.0 Platelet Count 323 # Mean Platelet Volume 11.0 H Neutrophils % 64.8 Lymphocytes % 21.4 Monocytes % 10.6 Eosinophils % 1.8 Basophils % 0.7 Nucleated Red Blood Cells % 0.0 Neutrophils # 7.8 H Lymphocytes # 2.6 Monocytes # 1.3 H Eosinophils # 0.2 Basophils # 0.1 Nucleated Red Blood Cells # 0.0 Medications Medications Current Medications Acetaminophen (Tylenol Tab) 650 mg Q6H PRN PO PAIN AND OR ELEVATED TEMP Last administered on 03/14/17 02:31; Admin Dose 650 MG; Start 03/08/17 at 00:00 Ondansetron HCl (Zofran Inj) 4 mg Q6H PRN IV NAUSEA AND/OR VOMITING; Start 03/08 at 00:00 Hydralazine HCl (Apresoline) 10 mg Q6H PRN IV ELEVATED BLOOD PRESSURE Last administered on 03/08/17 00:37; Admin Dose 10 MG; Start 03/08/17 at 00:00 Lorazepam (Ativan) 1 mg Q6H PRN IV ANXIETY Last administered on 03/14/17 22:35 ; Admin Dose 1 MG; Start 03/08/17 at 17:00 Acetaminophen/ Hydrocodone Bitart ([place] (5/325)) 1 tab Q6H PRN PO PAIN Last administered on 03/14/17 21:39; Admin Dose 1 TAB; Start 03/09/17 at 22:30 Multivitamins Therapeutic (Theragran) 1 tab DAILY PO Last administered on 08:51; Admin Dose 1 TAB; Start 03/12/17 at 09:00 Levofloxacin 750 mg 750 mg DAILY@06 PO Last administered on 03/15/17 06:20; Admin Dose 750 MG; Start 03/14/17 at 06:00 Piperacillin Sod/ Tazobactam Sod (Zosyn 3.375gm/ 100 ml (Pmx)) 100 ml @ 200 mls /hr Q8 IVPB Last administered on 03/15/17 06:20; Admin Dose 200 MLS/HR; Start 03/14/17 at 14:00 Pantoprazole (Protonix Tab) 40 mg DAILY@06 PO Last administered on 03/15/17 06 :20; Admin Dose 40 MG; Start 03/15/17 at 06:00 STEF MELO NP March 15, 2017 12:37
[2017-03-15 20:53] VITALS: BP 156/94; RESP 19
[2017-03-15 22:36] LABS: TIME 2230
--- NOTE | 2017-03-15 22:59 | PN ---
Date/Time of Note Date/Time of Note DATE: 03/15/17 TIME: 22:58 Assessment/Plan VTE Prophylaxis VTE Prophylaxis Intervention: other Lines/Catheters IV [facility] Saline Lock Urinary Cath still in place: No Assessment/Plan Chief Complaint/Hosp Course IMPRESSION: 1. Patient has lung mass. 2. Possible pneumonia. 3. leucocytosis better plan antibiotic per id and pulmonary Problems: Subjective 24 Hr Interval Summary Cardiovascular: no complaints Gastrointestinal: no complaints Exam/Review of Systems Vital Signs Vitals Vital Signs Date Time Temp Pulse Resp B/P Pulse Ox O2 Delivery O2 Flow Rate FiO2 03/15/17 22:16 99.3 03/15/17 20:53 101 19 156/94 98 03/13/17 20:03 Room Air 03/11/17 10:55 2.0 Intake and Output 03/14/17 03/14/17 03/15/17 15:00 23:00 07:00 Intake Total 150 ml 2180 ml 560 ml Balance 150 ml 2180 ml 560 ml Exam Respiratory: clear to auscultation Cardiovascular: regular rate and rhythm Gastrointestinal: soft Musculoskeletal: nl extremities to inspection Results Result Diagram: 03/15/17 0715 03/13/17 0422 Results 24 hrs Laboratory Tests Test 03/15/17 07:15 03/15/17 22:30 White Blood Count 12.0 H Red Blood Count 4.46 L Hemoglobin 14.0 Hematocrit 42.4 Mean Corpuscular Volume 95.1 Mean Corpuscular Hemoglobin 31.4 Mean Corpuscular Hemoglobin Concent 33.0 Red Cell Distribution Width 12.0 Platelet Count 323 # Mean Platelet Volume 11.0 H Neutrophils % 64.8 Lymphocytes % 21.4 Monocytes % 10.6 Eosinophils % 1.8 Basophils % 0.7 Nucleated Red Blood Cells % 0.0 Neutrophils # 7.8 H Lymphocytes # 2.6 Monocytes # 1.3 H Eosinophils # 0.2 Basophils # 0.1 Nucleated Red Blood Cells # 0.0 TB Skin Test Induration Pending TB Skin Test Administer Date 03/15/17 TB Skin Test Administer Time 2230 TB Skin Test Injection Site Left Upper Forearm Medications Medications Current Medications Acetaminophen (Tylenol Tab) 650 mg Q6H PRN PO PAIN AND OR ELEVATED TEMP Last administered on 03/14/17t 02:31; Admin Dose 650 MG; Start 03/08/17 at 00:00 Ondansetron HCl (Zofran Inj) 4 mg Q6H PRN IV NAUSEA AND/OR VOMITING; Start 03/08 at 00:00 Hydralazine HCl (Apresoline) 10 mg Q6H PRN IV ELEVATED BLOOD PRESSURE Last administered on 03/08/17 00:37; Admin Dose 10 MG; Start 03/08/17 at 00:00 Lorazepam (Ativan) 1 mg Q6H PRN IV ANXIETY Last administered on 03/14/17 22:35 ; Admin Dose 1 MG; Start 03/08/17 at 17:00 Acetaminophen/ Hydrocodone Bitart ([place] (5/325)) 1 tab Q6H PRN PO PAIN Last administered on 03/14/17 21:39; Admin Dose 1 TAB; Start 03/09/17 at 22:30 Multivitamins Therapeutic (Theragran) 1 tab DAILY PO Last administered on 08:51; Admin Dose 1 TAB; Start 03/12/17 at 09:00 Levofloxacin 750 mg 750 mg DAILY@06 PO Last administered on 03/15/17 06:20; Admin Dose 750 MG; Start 03/14/17 at 06:00 Piperacillin Sod/ Tazobactam Sod (Zosyn 3.375gm/ 100 ml (Pmx)) 100 ml @ 200 mls /hr Q8 IVPB Last administered on 03/15/17 22:17; Admin Dose 200 MLS/HR; Start 03/14/17 at 14:00 Pantoprazole (Protonix Tab) 40 mg DAILY@06 PO Last administered on 03/15/17 06 :20; Admin Dose 40 MG; Start 03/15/17 at 06:00 LINDA SCHULTZ MD March 15, 2017 22:59
[2017-03-15] MEDS: LORAZEPAM 2 MG INJ IV PRN (23:00)
[2017-03-16] MEDS: PIPER-TAZO 3.375 GM IV (PMX) 100 ML IVPB SCH ×3 (05:40→22:01)
[2017-03-16] MEDS: LEVOFLOXACIN 750 MG TABLET PO SCH (05:40)
[2017-03-16] MEDS: PANTOPRAZOLE (EC) 40 MG TAB PO SCH (05:40)
[2017-03-16] MEDS: ACETAMINOPHEN 325 MG TAB PO PRN (05:45)
[2017-03-16 07:33] VITALS: BP 139/82; RESP 16
[2017-03-16] MEDS: MULTIVITAMINS THERAPEUTIC TAB PO SCH (09:03)
--- NOTE | 2017-03-16 13:02 | CONS ---
Date/Time of Note Date/Time of Note DATE: 03/16/17 TIME: 13:01 Assessment/Plan Assessment/Plan Additional Assessment/Plan Assessment recommendations; next 1. Patient admitted for left upper lobe pneumonia currently on appropriate antibiotic regimen. Next Continue current treatment. Await PPD reading. Obtain follow-up chest x-ray tomorrow. Consultation Date/Type/Reason Admit Date/Time March 07, 2017 at 22:47 Type of Consultation: Pulmonary 24 HR Interval Summary Free Text/Dictation Patient condition stable. Denies any shortness of breath, chest pain, wheezing sputum production. General exam; young male, awake alert currently in no distress. Exam/Review of Systems Vital Signs Vitals Vital Signs Date Time Temp Pulse Resp B/P Pulse Ox O2 Delivery O2 Flow Rate FiO2 03/16/17 07:33 97.9 96 16 139/82 97 03/13/17 20:03 Room Air Intake and Output 03/15/17 03/15/17 03/16/17 15:00 23:00 07:00 Intake Total 100 ml 1740 ml 700 ml Balance 100 ml 1740 ml 700 ml Exam HEENT exam; supple neck, no JVD no lymphadenopathy midline trachea no thyromegaly pharynx is clear. No neck masses. Chest examination; clear to auscultation. S1-S2 audible, no murmurs. Regular rhythm. Abdomen examination; soft, protuberant. Nontender. Bowel sounds audible. Extremity examination; no peripheral edema. Pulses 1+ bilaterally. PPD placed in left forearm yesterday is negative so far. DIRECTOR WHOLESALE examination; no focal deficit. Results Result Diagram: 03/15/17 0715 03/13/17 0422 Results 24 hrs Laboratory Tests Test 03/15/17 22:30 TB Skin Test Induration Pending TB Skin Test Administer Date 03/15/17 TB Skin Test Administer Time 2229 TB Skin Test Injection Site Left Upper Forearm Medications Medications Current Medications Acetaminophen (Tylenol Tab) 650 mg Q6H PRN PO PAIN AND OR ELEVATED TEMP Last administered on 03/16/17t 05:45; Admin Dose 650 MG; Start 03/08/17 at 00:00 Ondansetron HCl (Zofran Inj) 4 mg Q6H PRN IV NAUSEA AND/OR VOMITING; Start 03/08 at 00:00 Hydralazine HCl (Apresoline) 10 mg Q6H PRN IV ELEVATED BLOOD PRESSURE Last administered on 03/08/17 00:37; Admin Dose 10 MG; Start 03/08/17 at 00:00 Lorazepam (Ativan) 1 mg Q6H PRN IV ANXIETY Last administered on 03/15/17 23:00 ; Admin Dose 1 MG; Start 03/08/17 at 17:00 Acetaminophen/ Hydrocodone Bitart ([place] (5/325)) 1 tab Q6H PRN PO PAIN Last administered on 03/14/17 21:39; Admin Dose 1 TAB; Start 03/09/17 at 22:30 Multivitamins Therapeutic (Theragran) 1 tab DAILY PO Last administered on 09:03; Admin Dose 1 TAB; Start 03/12/17 at 09:00 Levofloxacin 750 mg 750 mg DAILY@06 PO Last administered on 03/16/17 05:40; Admin Dose 750 MG; Start 03/14/17 at 06:00 Piperacillin Sod/ Tazobactam Sod (Zosyn 3.375gm/ 100 ml (Pmx)) 100 ml @ 200 mls /hr Q8 IVPB Last administered on 03/16/17 05:40; Admin Dose 200 MLS/HR; Start 03/14/17 at 14:00 Pantoprazole (Protonix Tab) 40 mg DAILY@06 PO Last administered on 03/16/17 05 :40; Admin Dose 40 MG; Start 03/15/17 at 06:00 KIMBERLY PERALTA March 16, 2017 13:02
[2017-03-16 13:06] LABS: CRYPTOCOCCAL ANTIGEN - SOURCE Serum
[2017-03-16 14:25] LABS: MYCOPLASMA PNEUMONIAE AB (IGG) 1.27
[2017-03-16 19:16] VITALS: BP 168/98; RESP 18
--- NOTE | 2017-03-16 20:30 | PN ---
Date/Time of Note Date/Time of Note DATE: 03/16/17 TIME: 20:29 Assessment/Plan VTE Prophylaxis VTE Prophylaxis Intervention: other Lines/Catheters [facility] Saline Lock Urinary Cath still in place: No Assessment/Plan Chief Complaint/Hosp Course IMPRESSION: 1. Patient has lung mass. 2. Possible pneumonia. 3. leucocytosis better plan antibiotic per id and pulmonary Problems: Subjective 24 Hr Interval Summary Respiratory: no complaints Cardiovascular: no complaints Exam/Review of Systems Vital Signs Vitals Vital Signs Date Time Temp Pulse Resp B/P Pulse Ox O2 Delivery O2 Flow Rate FiO2 03/16/17 19:16 98.9 107 18 168/98 96 03/13/17 20:03 Room Air Intake and Output 03/15/17 03/15/17 03/16/17 15:00 23:00 07:00 Intake Total 100 ml 1740 ml 700 ml Balance 100 ml 1740 ml 700 ml Exam Respiratory: clear to auscultation Cardiovascular: regular rate and rhythm Gastrointestinal: soft Musculoskeletal: nl extremities to inspection Extremities: normal pulses Results Result Diagram: 03/15/17 0715 03/13/17 0422 Results 24 hrs Laboratory Tests Test 03/15/17 22:30 TB Skin Test Induration Pending TB Skin Test Administer Date 03/15/17 TB Skin Test Administer Time 2230 TB Skin Test Injection Site Left Upper Forearm Medications Medications Current Medications Acetaminophen (Tylenol Tab) 650 mg Q6H PRN PO PAIN AND OR ELEVATED TEMP Last administered on 03/16/17 05:45; Admin Dose 650 MG; Start 03/08/17 at 00:00 Ondansetron HCl (Zofran Inj) 4 mg Q6H PRN IV NAUSEA AND/OR VOMITING; Start 03/08 at 00:00 Hydralazine HCl (Apresoline) 10 mg Q6H PRN IV ELEVATED BLOOD PRESSURE Last administered on 03/08/17 00:37; Admin Dose 10 MG; Start 03/08/17 at 00:00 Lorazepam (Ativan) 1 mg Q6H PRN IV ANXIETY Last administered on 03/15/17 23:00 ; Admin Dose 1 MG; Start 03/08/17 at 17:00 Acetaminophen/ Hydrocodone Bitart ([place] (5/325)) 1 tab Q6H PRN PO PAIN Last administered on 03/14/17 21:39; Admin Dose 1 TAB; Start 03/09/17 at 22:30 Multivitamins Therapeutic (Theragran) 1 tab DAILY PO Last administered on 09:03; Admin Dose 1 TAB; Start 03/12/17 at 09:00 Levofloxacin 750 mg 750 mg DAILY@06 PO Last administered on 03/16/17 05:40; Admin Dose 750 MG; Start 03/14/17 at 06:00 Piperacillin Sod/ Tazobactam Sod (Zosyn 3.375gm/ 100 ml (Pmx)) 100 ml @ 200 mls /hr Q8 IVPB Last administered on 03/16/17 14:13; Admin Dose 200 MLS/HR; Start 03/14/17 at 14:00 Pantoprazole (Protonix Tab) 40 mg DAILY@06 PO Last administered on 03/16/17 05 :40; Admin Dose 40 MG; Start 03/15/17 at 06:00 LINDA SCHULTZ MD March 16, 2017 20:30
[2017-03-16 22:02] VITALS: BP 151/88; PULSE 103
[2017-03-16] MEDS: LORAZEPAM 2 MG INJ IV PRN (23:38)
[2017-03-17] MEDS: PIPER-TAZO 3.375 GM IV (PMX) 100 ML IVPB SCH ×3 (05:47→21:36)
[2017-03-17] MEDS: PANTOPRAZOLE (EC) 40 MG TAB PO SCH (05:47)
[2017-03-17] MEDS: LEVOFLOXACIN 750 MG TABLET PO SCH (05:47)
--- NOTE | 2017-03-17 07:25 | PN ---
DATE: 03/16/2017 SUBJECTIVE: No acute changes. Patient with low grade fevers, T-max 100.4. LABORATORY DATA: WBC 12, platelets 323, no shift, no bands. BUN 10, creatinine 0.80. Serology for cryptococcal antigen came back negative. HIV serology was negative. ANTIMICROBIALS: Patient is on: 1. Zosyn. 2. Levaquin. PHYSICAL EXAMINATION: GENERAL: This is a well-developed, obese, middle-aged male who is alert, in no distress. HEENT: Atraumatic, normocephalic. Sclerae anicteric. Buccal mucosa moist. No oral lesions. NECK: Supple. CHEST: Symmetrical. Breath sounds diminished to the left. HEART: S1, S2. ABDOMEN: Soft, bowel sounds present. EXTREMITIES: No cyanosis or edema. ASSESSMENT 1. Left upper lobe pneumonia. 2. Systemic inflammatory response syndrome with low-grade fevers. PLAN: The patient remains stable. Sputum for AFB smear was negative. PPD was placed yesterday, re ading pending. He is on appropriate antimicrobials. Pulmonary follows him. Dictated By: STEF MELO UTILITY MAINTENANCE WORKER for KIMBERLYN CHARLES MD NI/NTS Conf#: [id number] DID#: [id number]
[2017-03-17 07:31] VITALS: BP 146/85; RESP 18
[2017-03-17 08:19] LABS: ADD SCAN DIFF NO
--- NOTE | 2017-03-17 08:19 | RADRPT ---
PROCEDURE: XR Chest. CLINICAL INDICATION: Pneumonia TECHNIQUE: Single portable view of the chest was obtained COMPARISON: 03/14/2017 FINDINGS: The heart is enlarged. There is unchanged left upper lobe mass/consolidation. There is no pleural effusion or pneumothorax. RPTAT: AA IMPRESSION: Mild Cardiomegaly. Unchanged left upper lobe mass/consolidation. .Gurjit Brito MD, MD Date Time Electronically viewed and signed by .Gurjit Brito MD, on 03/17/2017 08:18 .S/
[2017-03-17] MEDS: MULTIVITAMINS THERAPEUTIC TAB PO SCH (08:35)
[2017-03-17 08:40] LABS: BASOPHIL # 0.1 10^3/ul (0.0-0.1); BASOPHILS % 0.8 % (0.0-2.0); EOSINOPHILS # 0.1 10^3/ul (0.0-0.5); EOSINOPHILS % 1.2 % (0.0-7.0); HEMATOCRIT 39.4 % (42.0-52.0); HEMOGLOBIN 13.1 g/dl (14.0-18.0); LYMPHOCYTES # 1.9 10^3/ul (0.8-2.9); LYMPHOCYTES % 22.4 % (15.0-51.0); MEAN CORPUSCULAR HEMOGLOBIN 31.3 pg (29.0-33.0); MEAN CORPUSCULAR HGB CONC 33.2 g/dl (32.0-37.0); MEAN PLATELET VOLUME 10.7 fl (7.4-10.4); MONOCYTES % 12.1 % (0.0-11.0); NEUTROPHIL # 5.3 10^3/ul (1.6-7.5); NEUTROPHILS % 62.9 % (39.0-77.0); PLATELET COUNT 330 10^3/UL (140-415); RED BLOOD COUNT 4.19 10^6/ul (4.70-6.10); RED CELL DISTRIBUTION WIDTH 11.9 % (11.5-14.5); WHITE BLOOD COUNT 8.4 10^3/ul (4.8-10.8)
--- NOTE | 2017-03-17 11:52 | CONS ---
Date/Time of Note Date/Time of Note DATE: 03/17/17 TIME: 11:50 Assessment/Plan Assessment/Plan Additional Assessment/Plan Chest x-ray is showing persistent left upper lobe infiltrative/masslike changes. Next Assessment recommendations; next 1. Patient admitted for left upper lobe pneumonia with persistent changes seen on chest x-ray without any interval improvement despite adequate antibiotic coverage. 2. Negative PPD so far consider Moreno's antigen is negative as well. Continue current treatment. Patient will need to have a bronchoscopy performed. I did discuss the procedure in detail with the patient is agreeable I will schedule that for tomorrow morning. Consultation Date/Type/Reason Admit Date/Time March 07, 2017 at 22:47 Type of Consultation: Pulmonary 24 HR Interval Summary Free Text/Dictation Patient's condition is stable. Remains awake and alert. Ambulating in the hallway. Still complains of chest congestion. General exam; young male, awake alert currently in no distress. Exam/Review of Systems Vital Signs Vitals Vital Signs Date Time Temp Pulse Resp B/P Pulse Ox O2 Delivery O2 Flow Rate FiO2 03/17/17 07:31 99.3 107 18 146/85 96 03/13/17 20:03 Room Air Intake and Output 03/16/17 03/16/17 03/17/17 15:00 23:00 07:00 Intake Total 100 ml 1600 ml 800 ml Balance 100 ml 1600 ml 800 ml Exam HEENT exam; supple neck, no JVD. No lymphadenopathy. Midline trachea. No thyromegaly. Pharynx is clear. Patient has good dentition. Chest examination; clear to auscultation. S1-S2 audible, no murmurs. Regular rhythm. Abdomen examination; soft, nontender. No organomegaly. Bowel sounds audible. Extremity exam; no peripheral edema. PPD has been negative so far. GROUP THERAPIST examination; no focal deficit. Results Result Diagram: 03/17/17 0738 03/13/17 0422 Results 24 hrs Laboratory Tests Test 03/17/17 07:38 White Blood Count 8.4 # Red Blood Count 4.19 L Hemoglobin 13.1 L Hematocrit 39.4 L Mean Corpuscular Volume 94.0 Mean Corpuscular Hemoglobin 31.3 Mean Corpuscular Hemoglobin Concent 33.2 Red Cell Distribution Width 11.9 Platelet Count 330 Mean Platelet Volume 10.7 H Neutrophils % 62.9 Lymphocytes % 22.4 Monocytes % 12.1 H Eosinophils % 1.2 Basophils % 0.8 Nucleated Red Blood Cells % 0.0 Neutrophils # 5.3 Lymphocytes # 1.9 Monocytes # 1.0 H Eosinophils # 0.1 Basophils # 0.1 Nucleated Red Blood Cells # 0.0 Medications Medications Current Medications Acetaminophen (Tylenol Tab) 650 mg Q6H PRN PO PAIN AND OR ELEVATED TEMP Last administered on 03/16/17 05:45; Admin Dose 650 MG; Start 03/08/17 at 00:00 Ondansetron HCl (Zofran Inj) 4 mg Q6H PRN IV NAUSEA AND/OR VOMITING; Start 03/08 at 00:00 Hydralazine HCl (Apresoline) 10 mg Q6H PRN IV ELEVATED BLOOD PRESSURE Last administered on 03/08/17 00:37; Admin Dose 10 MG; Start 03/08/17 at 00:00 Lorazepam (Ativan) 1 mg Q6H PRN IV ANXIETY Last administered on 03/16/17 23:38 ; Admin Dose 1 MG; Start 03/08/17 at 17:00 Acetaminophen/ Hydrocodone Bitart ([place] (5/325)) 1 tab Q6H PRN PO PAIN Last administered on 03/14/17 21:39; Admin Dose 1 TAB; Start 03/09/17 at 22:30 Multivitamins Therapeutic (Theragran) 1 tab DAILY PO Last administered on 08:35; Admin Dose 1 TAB; Start 03/12/17 at 09:00 Levofloxacin 750 mg 750 mg DAILY@06 PO Last administered on 03/17/17 05:47; Admin Dose 750 MG; Start 03/14/17 at 06:00 Piperacillin Sod/ Tazobactam Sod (Zosyn 3.375gm/ 100 ml (Pmx)) 100 ml @ 200 mls /hr Q8 IVPB Last administered on 03/17/17 05:47; Admin Dose 200 MLS/HR; Start 03/14/17 at 14:00 Pantoprazole (Protonix Tab) 40 mg DAILY@06 PO Last administered on 03/17/17 05 :47; Admin Dose 40 MG; Start 03/15/17 at 06:00 KIMBERLY PERALTA March 17, 2017 11:52
--- NOTE | 2017-03-17 13:46 | PN ---
DATE: 03/16/2017 SUBJECTIVE: No acute changes overnight. The patient is alert, feels good. Denies pain, discomfort . Still with on and off low-grade fevers. He is on Zosyn and Levaquin. LABORATORY DATA: WBC 8.4, no shift, no bands. BUN 10, creatinine 0.80. Left upper extremity exami franck, PPD negative. DIAGNOSTICS: Chest x-ray this morning revealed unchanged left upper lobe mass and consolidation. PHYSICAL EXAMINATION: GENERAL: Well-developed, middle-aged man who is alert, in no distress. HEENT: Head atraumatic, normocephalic. Sclerae anicteric. Buccal mucosa pink. NECK: Supple. CHEST: Rise symmetrical. Breath sounds clear. HEART: S1, S2. ABDOMEN: Soft, bowel sounds present. EXTREMITIES: No cyanosis. ASSESSMENT: 1. Left upper lobe pneumonia, questionable mass. 2. Systemic inflammatory response syndrome with resolving leukocytosis, but persistent low-grade fe vers. PLAN: The patient remains stable on appropriate antimicrobials. As per discussion with Dr. Scruggs, plan for bronchoscopy next week. Dictated By: STEF MELO RECREATION FACILITY ATTENDANT for KIMBERLYN CHARLES MD NI/NTS Conf#: [id number] DID#: [id number]
--- NOTE | 2017-03-17 19:59 | PN ---
Date/Time of Note Date/Time of Note DATE: 03/17/17 TIME: 19:58 Assessment/Plan VTE Prophylaxis VTE Prophylaxis Intervention: other Lines/Catheters IV Catheter Type (from Nrs): Saline Lock Urinary Cath still in place: No Assessment/Plan Chief Complaint/Hosp Course IMPRESSION: 1. Patient has lung mass. 2. Possible pneumonia. 3. leucocytosis better plan antibiotic per id and pulmonary bronchoscopy am Problems: Subjective 24 Hr Interval Summary Respiratory: No shortness of breath Cardiovascular: no complaints Exam/Review of Systems Vital Signs Vitals Vital Signs Date Time Temp Pulse Resp B/P Pulse Ox O2 Delivery O2 Flow Rate FiO2 03/17/17 07:31 99.3 107 18 146/85 96 03/13/17 20:03 Room Air Intake and Output 03/16/17 03/16/17 03/17/17 15:00 23:00 07:00 Intake Total 100 ml 1600 ml 800 ml Balance 100 ml 1600 ml 800 ml Exam Respiratory: clear to auscultation Cardiovascular: regular rate and rhythm Gastrointestinal: soft Musculoskeletal: nl extremities to inspection Results Result Diagram: 03/17/17 0738 03/13/17 0422 Results 24 hrs Laboratory Tests Test 03/17/17 07:38 White Blood Count 8.4 # Red Blood Count 4.19 L Hemoglobin 13.1 L Hematocrit 39.4 L Mean Corpuscular Volume 94.0 Mean Corpuscular Hemoglobin 31.3 Mean Corpuscular Hemoglobin Concent 33.2 Red Cell Distribution Width 11.9 Platelet Count 330 Mean Platelet Volume 10.7 H Neutrophils % 62.9 Lymphocytes % 22.4 Monocytes % 12.1 H Eosinophils % 1.2 Basophils % 0.8 Nucleated Red Blood Cells % 0.0 Neutrophils # 5.3 Lymphocytes # 1.9 Monocytes # 1.0 H Eosinophils # 0.1 Basophils # 0.1 Nucleated Red Blood Cells # 0.0 Medications Medications Current Medications Acetaminophen (Tylenol Tab) 650 mg Q6H PRN PO PAIN AND OR ELEVATED TEMP Last administered on 03/16/17t 05:45; Admin Dose 650 MG; Start 03/08/17 at 00:00 Ondansetron HCl (Zofran Inj) 4 mg Q6H PRN IV NAUSEA AND/OR VOMITING; Start 03/08 at 00:00 Hydralazine HCl (Apresoline) 10 mg Q6H PRN IV ELEVATED BLOOD PRESSURE Last administered on 03/08/17 00:37; Admin Dose 10 MG; Start 03/08/17 at 00:00 Lorazepam (Ativan) 1 mg Q6H PRN IV ANXIETY Last administered on 03/16/17 23:38 ; Admin Dose 1 MG; Start 03/08/17 at 17:00 Acetaminophen/ Hydrocodone Bitart ([place] (5/325)) 1 tab Q6H PRN PO PAIN Last administered on 03/14/17 21:39; Admin Dose 1 TAB; Start 03/09/17 at 22:30 Multivitamins Therapeutic (Theragran) 1 tab DAILY PO Last administered on 08:35; Admin Dose 1 TAB; Start 03/12/17 at 09:00 Levofloxacin 750 mg 750 mg DAILY@06 PO Last administered on 03/17/17 05:47; Admin Dose 750 MG; Start 03/14/17 at 06:00 Piperacillin Sod/ Tazobactam Sod (Zosyn 3.375gm/ 100 ml (Pmx)) 100 ml @ 200 mls /hr Q8 IVPB Last administered on 03/17/17 13:39; Admin Dose 200 MLS/HR; Start 03/14/17 at 14:00 Pantoprazole (Protonix Tab) 40 mg DAILY@06 PO Last administered on 03/17/17 05 :47; Admin Dose 40 MG; Start 03/15/17 at 06:00 LINDA SCHULTZ MD March 17, 2017 19:59
[2017-03-17 20:17] VITALS: BP 143/81; RESP 19
--- NOTE | 2017-03-17 21:31 | RADRPT ---
Vent Rate: 92 bpm RR Interval: 0 msec VA Interval: 168 msec QRS Duration: 114 msec QT Interval: 370 msec QTC Interval: 457 msec P-R-T [place]: 58 - 80 - 47 degrees Normal sinus rhythm Normal ECG Electronically Signed By: Ottoniel Davila [id number]
[2017-03-17] MEDS: HYDROCODONE/APAP (5/325) TAB PO PRN (21:52)
[2017-03-17] MEDS: LORAZEPAM 2 MG INJ IV PRN (22:24)
[2017-03-18] VITALS (9 sets, daily range): BP systolic 117–143; BP diastolic 75–88; RESP 18–49
[2017-03-18] MEDS: PIPER-TAZO 3.375 GM IV (PMX) 100 ML IVPB SCH ×3 (05:55→22:25)
[2017-03-18] MEDS: PANTOPRAZOLE (EC) 40 MG TAB PO SCH (05:55)
[2017-03-18] MEDS: LEVOFLOXACIN 750 MG TABLET PO SCH (05:55)
[2017-03-18] MEDS ORDERED: SEVOFLURANE 15 MIN ONE (07:00)
[2017-03-18] MEDS: MULTIVITAMINS THERAPEUTIC TAB PO SCH (08:39)
[2017-03-18] MEDS ORDERED: MEPERIDINE 25 MG INJ IV PRN (09:00)
[2017-03-18] MEDS ORDERED: DIPHENHYDRAMINE 50 MG INJ IV PRN (09:00)
[2017-03-18] MEDS ORDERED: HYDROmorphONE (0.2 MG/ML) 10ML SYG IV PRN (09:00)
[2017-03-18] MEDS ORDERED: ONDANSETRON 4 MG INJ IV PRN (09:00)
[2017-03-18] MEDS ORDERED: SUCCINYLCHOLINE CHLORIDE 100 MG/5 ML SYG IV ONE (09:15)
[2017-03-18] MEDS ORDERED: MIDAZOLAM 1 MG/ML 2 ML INJ ONE (09:15)
[2017-03-18] MEDS ORDERED: PROPOFOL 20 ML ONE (09:15)
--- NOTE | 2017-03-18 10:34 | CONS ---
Date/Time of Note Date/Time of Note DATE: 03/18/17 TIME: 10:31 Assessment/Plan Assessment/Plan Additional Assessment/Plan Assessment recommendations; 1. Patient admitted for left upper lobe pneumonia with persistent radiological findings without any interval improvement. 2. Negative PPD. Patient scheduled for bronchoscopy today. If there is any endobronchial lesion a biopsy will be performed otherwise BAL will be performed from the left upper lobe area. Meanwhile continue current antibiotics. Consultation Date/Type/Reason Admit Date/Time March 07, 2017 at 22:47 Type of Consultation: Pulmonary 24 HR Interval Summary Free Text/Dictation Patient was evaluated in the preop holding area prior to bronchoscopy. Time of evaluation 10 AM. Patient is doing fairly well denies any coughing wheezing chest pain shortness of breath fever. General exam; young male, awake alert currently in no distress. Exam/Review of Systems Vital Signs Vitals Vital Signs Date Time Temp Pulse Resp B/P Pulse Ox O2 Delivery O2 Flow Rate FiO2 03/18/17 09:28 98.4 100 18 140/88 96 Intake and Output 03/17/17 03/17/17 03/18/17 15:00 23:00 07:00 Intake Total 100 ml 1220 ml 580 ml Balance 100 ml 1220 ml 580 ml Exam HEENT exam is; supple neck, no JVD. No lymphadenopathy. Midline trachea. No thyromegaly. Pharynx is clear. Patient has poor dentition. Chest examination; clear to auscultation. S1-S2 audible, no murmurs. Regular rhythm. Abdomen examination; soft, nontender. No organomegaly. Bowel sounds audible. Extremity examination; no peripheral edema. [employer]AF[employer] examination; no focal deficit. Results Result Diagram: 03/17/17 0738 Medications Medications Current Medications Acetaminophen (Tylenol Tab) 650 mg Q6H PRN PO PAIN AND OR ELEVATED TEMP Last administered on 03/16/17 05:45; Admin Dose 650 MG; Start 03/08/17 at 00:00 Ondansetron HCl (Zofran Inj) 4 mg Q6H PRN IV NAUSEA AND/OR VOMITING; Start 03/08 at 00:00 Hydralazine HCl (Apresoline) 10 mg Q6H PRN IV ELEVATED BLOOD PRESSURE Last administered on 03/08/17 00:37; Admin Dose 10 MG; Start 03/08/17 at 00:00 Lorazepam (Ativan) 1 mg Q6H PRN IV ANXIETY Last administered on 03/17/17 22:24 ; Admin Dose 1 MG; Start 03/08/17 at 17:00 Acetaminophen/ Hydrocodone Bitart ([place] (5/325)) 1 tab Q6H PRN PO PAIN Last administered on 03/17/17 21:52; Admin Dose 1 TAB; Start 03/09/17 at 22:30 Multivitamins Therapeutic (Theragran) 1 tab DAILY PO Last administered on 08:35; Admin Dose 1 TAB; Start 03/12/17 at 09:00 Levofloxacin 750 mg 750 mg DAILY@06 PO Last administered on 03/17/17 05:47; Admin Dose 750 MG; Start 03/14/17 at 06:00 Piperacillin Sod/ Tazobactam Sod (Zosyn 3.375gm/ 100 ml (Pmx)) 100 ml @ 200 mls /hr Q8 IVPB Last administered on 03/18/17 05:55; Admin Dose 200 MLS/HR; Start 03/14/17 at 14:00 Pantoprazole (Protonix Tab) 40 mg DAILY@06 PO Last administered on 03/17/17 05 :47; Admin Dose 40 MG; Start 03/15/17 at 06:00 KIMBERLY PERALTA March 18, 2017 10:34
--- NOTE | 2017-03-18 10:39 | EN ---
Date/Time of Note Date/Time of Note DATE: 03/18/17 TIME: 10:35 Event Note Medicine Medicine Event Note This is a bronchoscopy report. Informed consent was obtained from the patient. Procedure was explained to him in detail. Patient was anesthetized by the anesthesiologist and was intubated by 8.5 endotracheal tube without difficulty. Bronchoscope was traversed through the endotracheal tube. Distal trachea was normal ,wu was sharp and well defined. The scope was then introduced into the right mainstem bronchus with evaluation of the right upper lobe, bronchus intermedius, middle lobe, superior segment of the lower lobe and lower lobes, were all completely normal. The scope was then introduced into the left mainstem bronchus with evaluation of left upper lobe, lingula, superior segment of the lower lobes and lower lobes , all also totally normal without any endobronchial pathology being seen. The scope was then wedged in the common left upper lobe and after instilling 60 mL of normal saline BAL was performed with a fair return. The scope was then placed in the left upper lobe and after instilling 30 of saline another BAL was performed with a good return. The scope was then withdrawn. The patient did tolerate the procedure very well with stable cardiac rhythm, and vital signs. Specimens have been sent for Gram stain, AFB stain, fungal stains and cultures. Start time was 10:05 AM finish time was 10:10 in a.mKIMBERLY THOMAS March 18, 2017 10:39
--- NOTE | 2017-03-18 11:58 | PN ---
Date/Time of Note Date/Time of Note DATE: 03/18/17 TIME: 11:57 Assessment/Plan VTE Prophylaxis VTE Prophylaxis Intervention: ambulation Lines/Catheters [facility] Peripheral IV Urinary Cath still in place: No Assessment/Plan Chief Complaint/Hosp Course 1. Patient has lung mass. 2. Possible pneumonia. 3. Rule out malignancy, abnormal liver function tests 4. Hyponatremia. Problems: Assessment/Plan 1. Expecting biopsy results Subjective 24 Hr Interval Summary Constitutional: improved, no complaints Eyes: no complaints ENT: no complaints Respiratory: no complaints, other (just underwent bronchoscopy) Cardiovascular: no complaints Exam/Review of Systems Vital Signs Vitals Vital Signs Date Time Temp Pulse Resp B/P Pulse Ox O2 Delivery O2 Flow Rate FiO2 03/18/17 11:24 98.0 03/18/17 10:56 49 124/75 98 Room Air 03/18/17 09:28 100 Intake and Output 03/17/17 03/17/17 03/18/17 15:00 23:00 07:00 Intake Total 100 ml 1220 ml 580 ml Balance 100 ml 1220 ml 580 ml Exam Constitutional: alert, oriented Psych: no complaints Head: normocephalic ENMT: nl external ears & nose Respiratory: clear to auscultation Cardiovascular: regular rate and rhythm Results Result Diagram: 03/17/17 0738 Medications Medications Current Medications Acetaminophen (Tylenol Tab) 650 mg Q6H PRN PO PAIN AND OR ELEVATED TEMP Last administered on 03/16/17 05:45; Admin Dose 650 MG; Start 03/08/17 at 00:00 Ondansetron HCl (Zofran Inj) 4 mg Q6H PRN IV NAUSEA AND/OR VOMITING; Start 03/08 at 00:00 Hydralazine HCl (Apresoline) 10 mg Q6H PRN IV ELEVATED BLOOD PRESSURE Last administered on 03/08/17 00:37; Admin Dose 10 MG; Start 03/08/17 at 00:00 Lorazepam (Ativan) 1 mg Q6H PRN IV ANXIETY Last administered on 03/17/17 22:24 ; Admin Dose 1 MG; Start 03/08/17 at 17:00 Acetaminophen/ Hydrocodone Bitart ([place] (5/325)) 1 tab Q6H PRN PO PAIN Last administered on 03/17/17 21:52; Admin Dose 1 TAB; Start 03/09/17 at 22:30 Multivitamins Therapeutic (Theragran) 1 tab DAILY PO Last administered on 08:35; Admin Dose 1 TAB; Start 03/12/17 at 09:00 Levofloxacin 750 mg 750 mg DAILY@06 PO Last administered on 03/17/17 05:47; Admin Dose 750 MG; Start 03/14/17 at 06:00 Piperacillin Sod/ Tazobactam Sod (Zosyn 3.375gm/ 100 ml (Pmx)) 100 ml @ 200 mls /hr Q8 IVPB Last administered on 03/18/17 05:55; Admin Dose 200 MLS/HR; Start 03/14/17 at 14:00 Pantoprazole (Protonix Tab) 40 mg DAILY@06 PO Last administered on 03/17/17 05 :47; Admin Dose 40 MG; Start 03/15/17 at 06:00 JAMILA LYNN March 18, 2017 11:58
--- NOTE | 2017-03-18 18:07 | CONS ---
Date/Time of Note Date/Time of Note DATE: 03/18/17 TIME: 18:05 Assessment/Plan Assessment/Plan Chief Complaint/Hosp Course SUBJECTIVE: No events, s/p uneventful bronchoscopy, no acute findings per DW Dr Davis MICROBIOLOGY: Cultures have been negative. AFB smear negative ANTIMICROBIALS: Zosyn Levaquin PHYSICAL EXAMINATION: GENERAL: Obese, well-developed, middle-aged man who is alert, in no distress. HEENT: Head atraumatic, normocephalic. Sclerae anicteric. Buccal mucosa pink. NECK: Supple. CHEST: Rise symmetrical. Breath sounds clear, diminished to bases. HEART: S1, S2. ABDOMEN: Soft, bowel tones present. EXTREMITIES: Without cyanosis. ASSESSMENT: 1. Left upper lobe PNA===> s/p bronc in am. 2. Obesity. PLAN: Clinically stable, continue abx, await for BAL cx, pulmonary rec-s, anticipate dc on po abx DW pt/staff Problems: Consultation Date/Type/Reason Admit Date/Time March 07, 2017 at 22:47 Type of Consultation: ID Exam/Review of Systems Vital Signs Vitals Vital Signs Date Time Temp Pulse Resp B/P Pulse Ox O2 Delivery O2 Flow Rate FiO2 03/18/17 11:24 98.0 03/18/17 10:56 49 124/75 98 Room Air 03/18/17 09:28 100 Intake and Output 03/17/17 03/17/17 03/18/17 15:00 23:00 07:00 Intake Total 100 ml 1220 ml 580 ml Balance 100 ml 1220 ml 580 ml Results Result Diagram: 03/17/17 0738 Medications Medications Current Medications Acetaminophen (Tylenol Tab) 650 mg Q6H PRN PO PAIN AND OR ELEVATED TEMP Last administered on 03/16/17 05:45; Admin Dose 650 MG; Start 03/08/17 at 00:00 Ondansetron HCl (Zofran Inj) 4 mg Q6H PRN IV NAUSEA AND/OR VOMITING; Start 03/08 at 00:00 Hydralazine HCl (Apresoline) 10 mg Q6H PRN IV ELEVATED BLOOD PRESSURE Last administered on 03/08/17 00:37; Admin Dose 10 MG; Start 03/08/17 at 00:00 Lorazepam (Ativan) 1 mg Q6H PRN IV ANXIETY Last administered on 03/17/17 22:24 ; Admin Dose 1 MG; Start 03/08/17 at 17:00 Acetaminophen/ Hydrocodone Bitart ([place] (5/325)) 1 tab Q6H PRN PO PAIN Last administered on 03/17/17 21:52; Admin Dose 1 TAB; Start 03/09/17 at 22:30 Multivitamins Therapeutic (Theragran) 1 tab DAILY PO Last administered on 08:35; Admin Dose 1 TAB; Start 03/12/17 at 09:00 Levofloxacin 750 mg 750 mg DAILY@06 PO Last administered on 03/17/17 05:47; Admin Dose 750 MG; Start 03/14/17 at 06:00 Piperacillin Sod/ Tazobactam Sod (Zosyn 3.375gm/ 100 ml (Pmx)) 100 ml @ 200 mls /hr Q8 IVPB Last administered on 03/18/17 14:30; Admin Dose 200 MLS/HR; Start 03/14/17 at 14:00 Pantoprazole (Protonix Tab) 40 mg DAILY@06 PO Last administered on 03/17/17 05 :47; Admin Dose 40 MG; Start 03/15/17 at 06:00 STEF MELO NP March 18, 2017 18:07
[2017-03-18] MEDS: HYDROCODONE/APAP (5/325) TAB PO PRN (22:27)
[2017-03-18] MEDS: LORAZEPAM 2 MG INJ IV PRN (23:04)
[2017-03-19] MEDS: PIPER-TAZO 3.375 GM IV (PMX) 100 ML IVPB SCH ×2 (05:48→13:48)
[2017-03-19] MEDS: PANTOPRAZOLE (EC) 40 MG TAB PO SCH (05:48)
[2017-03-19] MEDS: LEVOFLOXACIN 750 MG TABLET PO SCH (05:48)
[2017-03-19 06:55] LABS: ADD SCAN DIFF NO
[2017-03-19 07:01] LABS: BASOPHIL # 0.1 10^3/ul (0.0-0.1); EOSINOPHILS # 0.1 10^3/ul (0.0-0.5); EOSINOPHILS % 0.9 % (0.0-7.0); LYMPHOCYTES # 2.7 10^3/ul (0.8-2.9); LYMPHOCYTES % 33.7 % (15.0-51.0); MEAN CORPUSCULAR HEMOGLOBIN 31.1 pg (29.0-33.0); MEAN CORPUSCULAR HGB CONC 32.6 g/dl (32.0-37.0); MEAN CORPUSCULAR VOLUME 95.6 fl (82.0-101.0); MEAN PLATELET VOLUME 10.4 fl (7.4-10.4); MONOCYTES % 11.8 % (0.0-11.0); NEUTROPHIL # 4.2 10^3/ul (1.6-7.5); NEUTROPHILS % 51.9 % (39.0-77.0); PLATELET COUNT 370 10^3/UL (140-415); WHITE BLOOD COUNT 8.1 10^3/ul (4.8-10.8)
[2017-03-19 07:30] LABS: CREATININE 0.87 mg/dl (0.61-1.24); POTASSIUM 3.6 mmol/L (3.5-5.1)
[2017-03-19 07:45] VITALS: BP 142/87; RESP 19
[2017-03-19] MEDS: MULTIVITAMINS THERAPEUTIC TAB PO SCH (09:07)
--- NOTE | 2017-03-19 11:56 | PN ---
Date/Time of Note Date/Time of Note DATE: 03/19/17 TIME: 11:55 Assessment/Plan VTE Prophylaxis VTE Prophylaxis Intervention: ambulation Lines[facility] Urinary Cath still in place: No Assessment/Plan Chief Complaint/Hosp Course 1. Patient has lung mass. 2. Possible pneumonia. 3. Rule out malignancy, abnormal liver function tests 4. Hyponatremia. Problems: Assessment/Plan 1.Expecting biopsy results 2. Kidney function normalized Subjective 24 Hr Interval Summary Constitutional: improved, no complaints Exam/Review of Systems Vital Signs Vitals Vital Signs Date Time Temp Pulse Resp B/P Pulse Ox O2 Delivery O2 Flow Rate FiO2 03/19/17 07:45 98.1 92 19 142/87 98 03/18/17 10:56 Room Air Intake and Output 03/18/17 03/18/17 03/19/17 15:00 23:00 07:00 Intake Total 200 ml 1060 ml 920 ml Output Total 0 ml Balance 200 ml 1060 ml 920 ml Exam Constitutional: alert, oriented Psych: no complaints Head: normocephalic Eyes: nl conjunctiva ENMT: nl external ears & nose Neck: supple Respiratory: clear to auscultation Cardiovascular: regular rate and rhythm Gastrointestinal: soft Results Result Diagram: 03/19/17 0539 03/19/17 0539 Results 24 hrs Laboratory Tests Test 03/19/17 05:39 White Blood Count 8.1 Red Blood Count 4.50 L Hemoglobin 14.0 Hematocrit 43.0 Mean Corpuscular Volume 95.6 Mean Corpuscular Hemoglobin 31.1 Mean Corpuscular Hemoglobin Concent 32.6 Red Cell Distribution Width 12.0 Platelet Count 370 Mean Platelet Volume 10.4 Neutrophils % 51.9 Lymphocytes % 33.7 Monocytes % 11.8 H Eosinophils % 0.9 Basophils % 1.0 Nucleated Red Blood Cells % 0.0 Neutrophils # 4.2 Lymphocytes # 2.7 Monocytes # 1.0 H Eosinophils # 0.1 Basophils # 0.1 Nucleated Red Blood Cells # 0.0 Sodium Level 139 Potassium Level 3.6 Chloride Level 104 Carbon Dioxide Level 27 Anion Gap 12 Blood Urea Nitrogen 6 L Creatinine 0.87 Glucose Level 111 Calcium Level 9.0 Medications Medications Current Medications Acetaminophen (Tylenol Tab) 650 mg Q6H PRN PO PAIN AND OR ELEVATED TEMP Last administered on 03/16/17 05:45; Admin Dose 650 MG; Start 03/08/17 at 00:00 Ondansetron HCl (Zofran Inj) 4 mg Q6H PRN IV NAUSEA AND/OR VOMITING; Start 03/08 at 00:00 Hydralazine HCl (Apresoline) 10 mg Q6H PRN IV ELEVATED BLOOD PRESSURE Last administered on 03/08/17 00:37; Admin Dose 10 MG; Start 03/08/17 at 00:00 Lorazepam (Ativan) 1 mg Q6H PRN IV ANXIETY Last administered on 03/18/17 23:04 ; Admin Dose 1 MG; Start 03/08/17 at 17:00 Acetaminophen/ Hydrocodone Bitart ([place] (5/325)) 1 tab Q6H PRN PO PAIN Last administered on 03/18/17 22:27; Admin Dose 1 TAB; Start 03/09/17 at 22:30 Multivitamins Therapeutic (Theragran) 1 tab DAILY PO Last administered on 09:07; Admin Dose 1 TAB; Start 03/12/17 at 09:00 Levofloxacin 750 mg 750 mg DAILY@06 PO Last administered on 03/19/17 05:48; Admin Dose 750 MG; Start 03/14/17 at 06:00 Piperacillin Sod/ Tazobactam Sod (Zosyn 3.375gm/ 100 ml (Pmx)) 100 ml @ 200 mls /hr Q8 IVPB Last administered on 03/19/17 05:48; Admin Dose 200 MLS/HR; Start 03/14/17 at 14:00 Pantoprazole (Protonix Tab) 40 mg DAILY@06 PO Last administered on 03/19/17 05 :48; Admin Dose 40 MG; Start 03/15/17 at 06:00 JAMILA LYNN March 19, 2017 11:56
[2017-03-19] MEDS ORDERED: CEPASTAT LOZENGE MT PRN (12:30)
--- NOTE | 2017-03-19 14:13 | CONS ---
Date/Time of Note Date/Time of Note DATE: 03/19/17 TIME: 14:09 Assessment/Plan Assessment/Plan Additional Assessment/Plan Assessment and recommendations; 1. Patient admitted for left upper lobe pneumonia, status post bronchoscopy yesterday with negative findings. 2. Clinically much improved. 3. Currently no evidence of any unusual pneumonia like Mycobacterium tuberculosis or fungal pneumonia. Continue current treatment. Anticipate discharge tomorrow. Consultation Date/Type/Reason Admit Date/Time March 07, 2017 at 22:47 Type of Consultation: Pulmonary 24 HR Interval Summary Free Text/Dictation Patient condition is stable. Denies any shortness of breath, chest congestion wheezing, sputum production. Any fever chills. General exam; young male, awake alert currently in no distress. Exam/Review of Systems Vital Signs Vitals Vital Signs Date Time Temp Pulse Resp B/P Pulse Ox O2 Delivery O2 Flow Rate FiO2 03/19/17 07:45 98.1 92 19 142/87 98 03/18/17 10:56 Room Air Intake and Output 03/18/17 03/18/17 03/19/17 15:00 23:00 07:00 Intake Total 200 ml 1060 ml 920 ml Output Total 0 ml Balance 200 ml 1060 ml 920 ml Exam H EENT exam; supple neck, no JVD. No lymphadenopathy. Midline trachea. No thyromegaly. Chest examination; clear to auscultation. S1-S2 audible, no murmurs. Regular rhythm. Abdomen examination; soft, nondistended. No organomegaly. Bowel sounds audible. Next Extremity examination; no peripheral edema. Next REGISTERED NURSE SUPERVISOR examination; no focal deficit. Results Result Diagram: 03/19/17 0539 03/19/17 0539 Results 24 hrs Laboratory Tests Test 03/19/17 05:39 White Blood Count 8.1 Red Blood Count 4.50 L Hemoglobin 14.0 Hematocrit 43.0 Mean Corpuscular Volume 95.6 Mean Corpuscular Hemoglobin 31.1 Mean Corpuscular Hemoglobin Concent 32.6 Red Cell Distribution Width 12.0 Platelet Count 370 Mean Platelet Volume 10.4 Neutrophils % 51.9 Lymphocytes % 33.7 Monocytes % 11.8 H Eosinophils % 0.9 Basophils % 1.0 Nucleated Red Blood Cells % 0.0 Neutrophils # 4.2 Lymphocytes # 2.7 Monocytes # 1.0 H Eosinophils # 0.1 Basophils # 0.1 Nucleated Red Blood Cells # 0.0 Sodium Level 139 Potassium Level 3.6 Chloride Level 104 Carbon Dioxide Level 27 Anion Gap 12 Blood Urea Nitrogen 6 L Creatinine 0.87 Glucose Level 111 Calcium Level 9.0 Medications Medications Current Medications Acetaminophen (Tylenol Tab) 650 mg Q6H PRN PO PAIN AND OR ELEVATED TEMP Last administered on 03/16/17 05:45; Admin Dose 650 MG; Start 03/08/17 at 00:00 Ondansetron HCl (Zofran Inj) 4 mg Q6H PRN IV NAUSEA AND/OR VOMITING; Start 03/08 at 00:00 Hydralazine HCl (Apresoline) 10 mg Q6H PRN IV ELEVATED BLOOD PRESSURE Last administered on 03/08/17 00:37; Admin Dose 10 MG; Start 03/08/17 at 00:00 Lorazepam (Ativan) 1 mg Q6H PRN IV ANXIETY Last administered on 03/18/17 23:04 ; Admin Dose 1 MG; Start 03/08/17 at 17:00 Acetaminophen/ Hydrocodone Bitart ([place] (5/325)) 1 tab Q6H PRN PO PAIN Last administered on 03/18/17 22:27; Admin Dose 1 TAB; Start 03/09/17 at 22:30 Multivitamins Therapeutic (Theragran) 1 tab DAILY PO Last administered on 09:07; Admin Dose 1 TAB; Start 03/12/17 at 09:00 Levofloxacin 750 mg 750 mg DAILY@06 PO Last administered on 03/19/17 05:48; Admin Dose 750 MG; Start 03/14/17 at 06:00 Piperacillin Sod/ Tazobactam Sod (Zosyn 3.375gm/ 100 ml (Pmx)) 100 ml @ 200 mls /hr Q8 IVPB Last administered on 03/19/17 13:48; Admin Dose 200 MLS/HR; Start 03/14/17 at 14:00 Pantoprazole (Protonix Tab) 40 mg DAILY@06 PO Last administered on 03/19/17 05 :48; Admin Dose 40 MG; Start 03/15/17 at 06:00 Phenol (Cepastat Lozenge) 1 lozenge Q1H PRN MT PAIN LEVEL 4-6; Start 03/19/17 at 12:30 KIMBERLY PERALTA 20, 2017 14:13
[2017-03-19 16:23] LABS: SEVENTY TWO HOUR READING 0 mm (0-9)
--- NOTE | 2017-03-19 17:02 | PDOCDIS ---
Discharge Instructions CONDITION Patient Condition: Stable HOME CARE INSTRUCTIONS: Special Diet: regular ACTIVITY: Activity Restrictions: Slowly Increase Activity FOLLOW UP/APPOINTMENTS Appointments d/u own pcp [address] ghosh [address] darden 2 wks LINDA SCHULTZ MD March 19, 2017 17:02
[2017-03-19] MEDS ORDERED: DOXY-220 PO (17:05)
[2017-03-19] MEDS ORDERED: LEVO750T25 PO (17:05)
[2017-03-19] MEDS ORDERED: PANT40TA4 PO (17:05)
--- NOTE | 2017-03-19 17:33 | RADRPT ---
PROCEDURE: XR Chest. CLINICAL INDICATION: Left upper lung mass TECHNIQUE: A single AP view of the chest was obtained. COMPARISON: Chest x-ray dated 03/17/2017 FINDINGS: There is a focal opacity in the left upper lobe. There is prominence of the left lingular and lower lobe interstitial markings. No pleural effusion or pneumothorax is seen. The cardiomediastinal si lhouette is mildly enlarged. The osseous structures are unremarkable. IMPRESSION: 1. Stable left upper lobe mass with prominence of the left lung interstitial markings. 2. Mild cardiomegaly. RPTAT: HH .Zaida Tejeda MD, MD Date Time Electronically viewed and signed by .Zaida Tejeda MD, on 03/19/2017 17:33 .G/
--- NOTE | 2017-03-19 18:12 | CONS ---
Date/Time of Note Date/Time of Note DATE: 03/19/17 TIME: 18:07 Assessment/Plan Assessment/Plan Chief Complaint/Hosp Course ID PROGRESS NOTE ABX DAY #11-> Levaquin #6 24H INTERVAL SUMMARY * Feels much better, sitting up edge of bed eating dinner, off supplemental O2, denies fevers/chills/cough/hemoptysis/dyspnea/wheeze * PPD Negative = ZERO induration, Crypto(-), HIV(-), (+)Mycoplasma IgG1.27 * 03/18/17 BRONCH MICRO: GRAM STAIN Final POLYMORPH. LEUKOCYTE NONE SEEN . NO ORGANISM SEEN * RESPIRATORY CULTURE Preliminary No growth after 1 day PHYSICAL EXAMINATION: GENERAL: VSS, NAD HEENT: Unremarkable NECK: Trach-> midline CHEST: Equal chest rise bilaterally, without dyspnea on observation HEART: Pulse RRR ABDOMEN: Soft EXTREMITIES: Warm, SKIN: Warm, dry ID ASSESSMENT: 41 yo obese M w/admitted with: 1. Sepsis 2/2 pulmonary community acquired PNA w/TMax 102.5, tachycardia 112, leukocytosis @ 15.2 w/elevated Neuts% & Phelps%, procalcitonin 0.12 * RESOLVED -> patient is back to near normal 2. Left upper lobe PNA=> Suspect community acquired atypical PNA -> (+) Mycoplasma IgG * (-) PPD, AFB smear (-), (-)Crypto * Sputum for cytology:-- Insufficient for cytopathologic evaluation. -- No pulmonary macrophages identified. 3. HTN ABX ALLERGIES: NKDA CURRENT ABX: # Levaquin #6 day ID RECOMMENDATIONS: 1. Concur with pulmonary: Currently no evidence of any unusual pneumonia like Atypical Mycobacterium, or fungal pneumonia, work-up for MTB (-). 2. The patient has improved and pulmonary sepsis has resolved; despite the stable presence of LEIGHANN consolidating PNA. 3. The patient likely has a true atypical Mycoplasma PNA with presentation consistent with that described in the literature, see reference below. 4. CDC webisite advising Macrolide resistant strains are increasingly common. 5. Owusu Hickey Guide To ABX Tx recommends Levaquin in patient's with co- morbidities such as obesity, diabetes, COPD,CHF. FINAL RECOMMENDATION: * Concur with primary MD => The patient is appropriately treated with high dose Levaquin 750mg po anticipate DC home on Levaquin 750mg po course. * DC Zosyn (not effective for Mycoplasma PNA)-> replace with Doxycycline "Double -Cover" po course Rx upon DC warranted per evidence of consolidation on CXR. * Patient may f/u with his primary MD outpatient after course of ABX. LITERATURE REVIEW REFERENCE `````````````````````````````` http://[email or web address]/[email or web address].full Mycoplasma pneumoniae and Its Role as a Human Pathogen Clin. Microbiol. Rev. July 2004 vol. 17 no. 4 [id number] 31 July 2004 DIAGNOSIS General Laboratory FeaturesClinical laboratory findings are seldom diagnostic for M. pneumoniae infection. About one-third of persons with lower respiratory tract infections may have leukocytosis (392). An elevated erythrocyte sedimentation rate may also be observed (45). Gram staining of sputum may show mononuclear cells or neutrophils and normal jose. There are no hepatic or renal abnormalities typical of M. pneumoniae infection, although the hemolytic anemia that develops in some patients may be reflected in the hemogram. Prior to the widespread availability of commercialized antibody assays, and even before the precise bacteriological characterization of the etiological agent was known, clinicians sometimes used the presence of cold agglutinins to confirm their clinical suspicions of primary atypical pneumonia, which was also known as cold-agglutinin disease. Cold agglutinins are actually IgM antibodies that are produced 1 to 2 weeks after initial infection in about 50% of M. pneumoniae infections and may persist for several weeks. Due to the availability of antibody assays that are based on immunological reagents specific for M. pneumoniae,the popularity of testing serum for the presence of cold agglutinins has declined. If used, this test should be limited to persons in whom mycoplasmal pneumonia is a strong possibility. Under these circumstances, a positive test provides reasonable supportive evidence of a mycoplasmal etiology, on the basis of which clinical management decisions can be made. ```````````````````````````````````````````````````````````````````````````````` ```````````````````````````````````````````````````````````````````````````````` ```````````````````````````````````````` Radiographic Findings Primary atypical pneumonia due to M. pneumoniae can be extremely variable and mimic a wide variety of lung diseases. The inflammatory response elicited by M. pneumoniae causes interstitial mononuclear inflammation in the lungs that may be manifested radiographically as diffuse, reticular infiltrates of bronchopneumonia in the perihilar regions or lower lobes, usually with a unilateral distribution, and hilar adenopathy. Bilateral involvement may occur in about 20% of cases (137). However, lobar consolidation with bilateral alveolar involvement has been described, and the degree of consolidation may exceed what would be expected based on the severity of clinical manifestations ( 97). Among patients with M. pneumoniae pneumonia who require hospitalization, up to 10.9% will require mechanical ventilation (282). ```````````````````````````````````````````````````````````````````````````````` ```````````````````````````````````````````````````````````````````````````````` `````````````````````````````````````````````` Problems: Consultation Date/Type/Reason Admit Date/Time March 07, 2017 at 22:47 Initial Consult Date Type of Consultation: ID Exam/Review of Systems Vital Signs Vitals Vital Signs Date Time Temp Pulse Resp B/P Pulse Ox O2 Delivery O2 Flow Rate FiO2 03/19/17 07:45 98.1 92 19 142/87 98 03/18/17 10:56 Room Air Intake and Output 03/18/17 03/18/17 03/19/17 15:00 23:00 07:00 Intake Total 200 ml 1060 ml 920 ml Output Total 0 ml Balance 200 ml 1060 ml 920 ml Results Result Diagram: 03/19/17 0539 03/19/17 0539 Results 24 hrs Laboratory Tests Test 03/19/17 05:39 White Blood Count 8.1 Red Blood Count 4.50 L Hemoglobin 14.0 Hematocrit 43.0 Mean Corpuscular Volume 95.6 Mean Corpuscular Hemoglobin 31.1 Mean Corpuscular Hemoglobin Concent 32.6 Red Cell Distribution Width 12.0 Platelet Count 370 Mean Platelet Volume 10.4 Neutrophils % 51.9 Lymphocytes % 33.7 Monocytes % 11.8 H Eosinophils % 0.9 Basophils % 1.0 Nucleated Red Blood Cells % 0.0 Neutrophils # 4.2 Lymphocytes # 2.7 Monocytes # 1.0 H Eosinophils # 0.1 Basophils # 0.1 Nucleated Red Blood Cells # 0.0 Sodium Level 139 Potassium Level 3.6 Chloride Level 104 Carbon Dioxide Level 27 Anion Gap 12 Blood Urea Nitrogen 6 L Creatinine 0.87 Glucose Level 111 Calcium Level 9.0 Medications Medications Current Medications Acetaminophen (Tylenol Tab) 650 mg Q6H PRN PO PAIN AND OR ELEVATED TEMP Last administered on 03/16/17 05:45; Admin Dose 650 MG; Start 03/08/17 at 00:00 Ondansetron HCl (Zofran Inj) 4 mg Q6H PRN IV NAUSEA AND/OR VOMITING; Start 03/08 at 00:00 Hydralazine HCl (Apresoline) 10 mg Q6H PRN IV ELEVATED BLOOD PRESSURE Last administered on 03/08/17 00:37; Admin Dose 10 MG; Start 03/08/17 at 00:00 Lorazepam (Ativan) 1 mg Q6H PRN IV ANXIETY Last administered on 03/18/17 23:04 ; Admin Dose 1 MG; Start 03/08/17 at 17:00 Acetaminophen/ Hydrocodone Bitart ([place] (5/325)) 1 tab Q6H PRN PO PAIN Last administered on 03/18/17 22:27; Admin Dose 1 TAB; Start 03/09/17 at 22:30 Multivitamins Therapeutic (Theragran) 1 tab DAILY PO Last administered on 09:07; Admin Dose 1 TAB; Start 03/12/17 at 09:00 Levofloxacin 750 mg 750 mg DAILY@06 PO Last administered on 03/19/17 05:48; Admin Dose 750 MG; Start 03/14/17 at 06:00 Piperacillin Sod/ Tazobactam Sod (Zosyn 3.375gm/ 100 ml (Pmx)) 100 ml @ 200 mls /hr Q8 IVPB Last administered on 03/19/17 13:48; Admin Dose 200 MLS/HR; Start 03/14/17 at 14:00 Pantoprazole (Protonix Tab) 40 mg DAILY@06 PO Last administered on 03/19/17 05 :48; Admin Dose 40 MG; Start 03/15/17 at 06:00 Phenol (Cepastat Lozenge) 1 lozenge Q1H PRN MT PAIN LEVEL 4-6 Last administered on 03/19/17 15:21; Admin Dose 1 LOZENGE; Start 03/19/17 at 12:30 FABIO VIEIRA NP March 19, 2017 18:12
[2017-03-19] MEDS ORDERED: DOXYCYCLINE 100 MG TAB PO SCH (21:00)
== END 2017-03-19 20:50 | disposition home or self-care (01) | DRG 167 ==
LOC: MS2 22:47
PROVIDERS: ADMIT Internal Medicine Nephrology; ATTEND Internal Medicine Nephrology
PROC: 0B9G8ZX Drainage of Left Upper Lung Lobe, Via Natural or Artificial Opening Endoscopic, Diagnostic (ICD-10-PCS; principal; 2017-03-18 09:30)
DX: J15.7 Pneumonia due to Mycoplasma pneumoniae (principal); E87.1 Hypo-osmolality and hyponatremia; K76.0 Fatty (change of) liver, not elsewhere classified; F10.21 Alcohol dependence, in remission; R07.9 Chest pain, unspecified; Z87.891 Personal history of nicotine dependence; E66.9 Obesity, unspecified; Z68.36 Body mass index [BMI] 36.0-36.9, adult
CPT/HCPCS: 71010; 71250; 80048; 80053; 80202; 82150; 83690; 84145; 85025; 85049; 85610; 85670; 85730; 86580; 86635; 86641; 86703; 86738; 87040; 87070; 87102; 87116; 93005; C9113; J0360; J0456; J0696; J1200; J2060; J2250; J2543; J3010; J3370; J3411; J7030; J7040; J7042; J7050; J7999

== ENCOUNTER 2017-04-05 09:50 | Emergency (ER) | payer OTHER ==
[~2017-04-05] VITALS: Ht 182.9 cm; Wt 115.5 kg
[~2017-04-05 09:50] MED LIST: DOXY-220 PO; LEVO750T25 PO; PANT40TA4 PO
[2017-04-05 10:16] VITALS: Ht 182.9 cm; Wt 115.5 kg
[2017-04-05 11:26] LABS: ADD SCAN DIFF NO
[2017-04-05 11:41] LABS: BASOPHIL # 0.1 10^3/ul (0.0-0.1); EOSINOPHILS # 0.3 10^3/ul (0.0-0.5); EOSINOPHILS % 2.5 % (0.0-7.0); HEMATOCRIT 46.4 % (42.0-52.0); HEMOGLOBIN 15.8 g/dl (14.0-18.0); LYMPHOCYTES % 39.8 % (15.0-51.0); MEAN CORPUSCULAR HEMOGLOBIN 31.1 pg (29.0-33.0); MEAN CORPUSCULAR HGB CONC 34.1 g/dl (32.0-37.0); MEAN CORPUSCULAR VOLUME 91.3 fl (82.0-101.0); MEAN PLATELET VOLUME 10.1 fl (7.4-10.4); MONOCYTE # 0.7 10^3/ul (0.3-0.9); MONOCYTES % 6.9 % (0.0-11.0); NEUTROPHIL # 4.9 10^3/ul (1.6-7.5); NEUTROPHILS % 49.3 % (39.0-77.0); PLATELET COUNT 380 10^3/UL (140-415); RED BLOOD COUNT 5.08 10^6/ul (4.70-6.10); RED CELL DISTRIBUTION WIDTH 11.6 % (11.5-14.5)
[2017-04-05 11:51] LABS: ALBUMIN/GLOBULIN RATIO 1.31; BILIRUBIN,INDIRECT 0.3 mg/dl (0-1.1); BILIRUBIN,TOTAL 0.3 mg/dl (0.2-1.3); CALCIUM 9.7 mg/dl (8.4-10.2); CREATININE 0.71 mg/dl (0.61-1.24); TOTAL PROTEIN 8.8 g/dl (6.1-8.1)
--- NOTE | 2017-04-05 12:18 | ERD ---
ER Documentation Chief Complaint Date/Time DATE: 04/05/17 TIME: 12:18 Chief Complaint SENT FROM CLINIC [facility] ABDUL This is a 41-year-old male who was recently hospitalized on March 07 and discharged on March 19 at this hospital for a diagnosis of a lung mass presenting to the emergency department for a reevaluation of lung mass versus pneumonia. Patient was evaluated at his primary care physician office 4 days ago and he was referred here for reevaluation. Patient states that he continues to have cough for past three weeks. He denies any shortness of breath or chest pain. Patient was instructed to get a repeat CT of the chest. ROS All systems reviewed and are negative except as per history of present illness. Medications Home Meds Active Scripts Doxycycline Monohydrate* (Doxycycline Monohydrate*) 100 Mg Tablet, 100 MG PO BID for 10 Days, TAB Prov:LINDA SCHULTZ MD 03/19/17 Pantoprazole* (Pantoprazole*) 40 Mg Tablet.dr, 40 MG PO DAILY@06 for 28 Days Prov:LINDA SCHULTZ MD 03/19/17 Levofloxacin* (Levaquin*) 750 Mg Tablet, 750 MG PO DAILY@06 for 10 Days, TAB Prov:LINDA SCHULTZ MD 03/19/17 Allergies Allergies: Coded Allergies: No Known Drug Allergies (Verified Allergy, Unknown, 03/07/17) PMhx/Soc History of Surgery: No Anesthesia Reaction: No Hx Neurological Disorder: No Hx Respiratory Disorders: No Hx Cardiac Disorders: Yes (HTN) Hx Psychiatric Problems: No Hx Miscellaneous Medical Probl: Yes (STROKE WITH L HEMIPARESIS,HTN,DM, DYSLIDIEMIA,) Hx Substance Use: No Hx Tobacco Use: No Physical Exam Vitals Vital Signs Date Time Temp Pulse Resp B/P Pulse Ox O2 Delivery O2 Flow Rate FiO2 04/05/17 14:31 77 18 123/61 99 Room Air 04/05/17 10:16 98.5 106 20 175/111 99 Physical Exam Const: [] Head: Atraumatic Eyes: Normal Conjunctiva ENT: Normal External Ears, Nose and Mouth. Neck: Full range of motion..~ No meningismus. Resp: Clear to auscultation bilaterally Cardio: Regular rate and rhythm, no murmurs Abd: Soft, non tender, non distended. Normal bowel sounds Skin: No petechiae or rashes Back: No midline or flank tenderness Ext: No cyanosis, or edema Neur: Awake and alert Psych: Normal Mood and Affect Result Diagram: 04/05/17 1110 04/05/17 1110 Results 24 hrs Laboratory Tests Test 04/05/17 11:10 White Blood Count 10.010^3/ul Red Blood Count 5.0810^6/ul Hemoglobin 15.8g/dl Hematocrit 46.4% Mean Corpuscular Volume 91.3fl Mean Corpuscular Hemoglobin 31.1pg Mean Corpuscular Hemoglobin Concent 34.1g/dl Red Cell Distribution Width 11.6% Platelet Count 92924^3/UL Mean Platelet Volume 10.1fl Neutrophils % 49.3% Lymphocytes % 39.8% Monocytes % 6.9% Eosinophils % 2.5% Basophils % 1.0% Nucleated Red Blood Cells % 0.0/100WBC Neutrophils # 4.910^3/ul Lymphocytes # 4.010^3/ul Monocytes # 0.710^3/ul Eosinophils # 0.310^3/ul Basophils # 0.110^3/ul Nucleated Red Blood Cells # 0.010^3/ul Sodium Level 142mmol/L Potassium Level 4.0mmol/L Chloride Level 105mmol/L Carbon Dioxide Level 25mmol/L Anion Gap 16 Blood Urea Nitrogen 11mg/dl Creatinine 0.71mg/dl Glucose Level 107mg/dl Calcium Level 9.7mg/dl Total Bilirubin 0.3mg/dl Direct Bilirubin 0.00mg/dl Indirect Bilirubin 0.3mg/dl Aspartate Amino Transf (AST/SGOT) 36IU/L Alanine Aminotransferase (ALT/SGPT) 50IU/L Alkaline Phosphatase 58IU/L Total Protein 8.8g/dl Albumin 5.0g/dl Globulin 3.80g/dl Albumin/Globulin Ratio 1.31 Current Medications Medications (Trade) Dose Ordered Sig/Harsha Route PRN Reason Start Time Stop Time Status Last Admin Dose Admin IV Flush 10 ml 10 ml STK-MED ONCE .ROUTE 04/05/17 12:54 04/05/17 12:55 DC 04/05/17 12:54 Sodium Chloride (NS) 100 ml @ ud STK-MED ONCE .ROUTE 04/05/17 12:54 04/05/17 12:55 DC 04/05/17 12:54 Iodixanol (Visipaque Locm) 100 ml STK-MED ONCE .ROUTE 04/05/17 12:54 04/05/17 12:55 DC 04/05/17 12:54 Procedures/MDM This is a 41-year-old male who was recently hospitalized on March 07 and discharged on March 19 at this hospital for a diagnosis of a lung mass presenting to the emergency department for a reevaluation of lung mass versus pneumonia. Patient was evaluated at his primary care physician office 4 days ago and he was referred here for reevaluation. I have reviewed patient's past chart and when he was discharged from this hospital on 03/19 the physician recommended a repeat CT of the chest , therefore it was repeat - CT chest: 1. Minimal further increase in size to the pleural based mass seen in the lateral left upper lobe which measures 4.9 x 4.5 x 4.2 cm. The margins appear somewhat irregular on lung windows and there is stranding to the right hilum. This could be neoplastic or inflammatory. 2. There are a few AP window nodes up to 8 mm in short diameter, a 1 cm in short diameter subcarinal node, and a 1 cm in short diameter left hilar node. 3. Hepatomegaly with diffuse fatty infiltration but with no focal lesion identified. 4. A 2.1 cm lipoma is seen within the right intercostal muscle and just posterior to the right tenth rib. Lab work was drawn. CBC did not show any evidence of leukocytosis or anemia. CMP did not show any evidence of renal, liver, or electrolyte abnormalities. I discussed this case with my supervising physician and , in which we suggest that patient is stable for discharge for home to follow-up with a lineman service or work dispatcher in the next couple days. Discussed to follow-up with Dr. Scruggs. I have given patient the diagnostic testing. Discussed return to the ER for any worsening signs or symptoms. He understands and agrees with the plan Departure Diagnosis: Primary Impression: Lung mass Additional Impression: Cough Condition: CHARLI Kraft PA-C Apr 05, 2017 12:18 The patient to follow up with the patient's PCP and Dr. Scruggs and Dr. Sousa as an outpatient. The patient was instructed to have a CT scan of the chest done as an outpatient after antibiotic course is finished. 3-4 weeks. The patient is stable at the time of discharge. CHARLI MONTES PA-C Apr 05, 2017 12:18
[2017-04-05] MEDS ORDERED: IODIXANOL LOCM 100 ML BTL ONE (12:54)
[2017-04-05] MEDS ORDERED: SOD CHLORIDE 0.9% 100 ML ONE (12:54)
--- NOTE | 2017-04-05 14:03 | RADRPT ---
PROCEDURE: CT Chest With Contrast CLINICAL INDICATION: Left chest mass TECHNIQUE: Volumetric acquisition of the thorax was performed following the intravenous administra tion of contrast. One or more of the following dose reduction techniques were used: - Automated exposure control. - Adjustment of the mA and/or kV according to patient size. - Use of iterative reconstruction technique. Radiation Dose: CTDI = 16.63 mGy; DLP = 782.07 mGy-cm. COMPARISON: 03/11/2017. FINDINGS: Lung leung: There has been minimal interval enlargement of the lateral pleural based mass located w ithin the left upper lobe which measures 4.9 x 4.5 x 4.2 cm. There are air bronchograms at the infe rior aspect of the mass and there is stranding into the left hilum with the margins appearing irregu lar on lung windows. No other pulmonary mass or nodule is identified. The pleural spaces: No effusion or pneumothorax is identified. Lymph nodes: A few AP window nodes are evident up to 8 mm in short diameter. There is a 1 cm in sydnee rt diameter subcarinal node. A 1 cm left hilar node is evident. Cardiovascular structures: The heart is normal in size. The aorta appears intact and normal in randall clare. The central pulmonary arteries appear patent. Thyroid: Unremarkable. Superior abdominal structures: The liver is enlarged and diffusely fatty infiltrated with no focal l esion identified. Osseous structures: Mild diffuse degenerative endplate changes are noted with no osseous destruction identified. Soft tissues: A 2.1 cm lipoma is seen within the right intercostal muscle just posterior to the rig ht tenth rib. IMPRESSION: 1. Minimal further increase in size to the pleural based mass seen in the lateral left upper lobe w hich measures 4.9 x 4.5 x 4.2 cm. The margins appear somewhat irregular on lung windows and there i s stranding to the right hilum. This could be neoplastic or inflammatory. 2. There are a few AP window nodes up to 8 mm in short diameter, a 1 cm in short diameter subcarina l node, and a 1 cm in short diameter left hilar node. 3. Hepatomegaly with diffuse fatty infiltration but with no focal lesion identified. 4. A 2.1 cm lipoma is seen within the right intercostal muscle and just posterior to the right tent h rib. Jovan Menard Physician Date Time Electronically viewed and signed by Jovan Menard Physician on 04/05/2017 14:03 /
[2017-04-05 14:31] VITALS: BP 123/61; PULSE 77; RESP 18
== END 2017-04-05 14:31 | disposition home or self-care (01) ==
LOC: FTE 09:50
DX: R91.8 Other nonspecific abnormal finding of lung field (principal); I10 Essential (primary) hypertension; E11.9 Type 2 diabetes mellitus without complications
CPT/HCPCS: 71260; 80053; 85025; Q9967; Z7502; Z7610